=== PATIENT | male | born 1940 | race Caucasian/White ===

== ENCOUNTER 2018-12-27 11:53 | Inpatient (IN) ==
[2018-12-27] MEDS ORDERED: FUROSEMIDE 40 MG/4 ML VIAL IV STA (12:09)
--- NOTE | 2018-12-27 13:02 | XRay Report ---
XR chest 1V portable CLINICAL HISTORY: Dyspnea COMPARISON STUDY: Chest CT January 23, 2008 per chest radiograph July 20, 2018. FINDINGS: Patient is rotated. A small right pleural effusion is noted. There is mild right basilar op acity. Cardiomediastinal silhouette is unremarkable. Skinfolds project over the right hemithorax. IMPRESSION: 1. Small right pleural effusion with mild bibasilar opacities, greater on the right. The findings may reflect pneumonia or atelectasis. Radiographic follow up is recommended. 2. Pulmonary vascular congestion with possible mild pulmonary edema. Electronically signed by: Del Alonso M.D. 12/27/2018 1:01 PM
[2018-12-27 13:38] LABS: Basophils # (auto) 0.01 K/uL (0-0.2); Basophils % (auto) 0.1 %; Eosinophils # (auto) 0.02 K/uL (0-0.5); Eosinophils % (auto) 0.3 %; Hematocrit (blood only) 55.2 % (42-52); Hemoglobin 16.7 g/dL (14.0-18.0); Immature Granulocytes # (auto) 0.01 K/uL (0.00-0.02); Immature Granulocytes % (auto) 0.1 %; Lymphocytes # (auto) 1.18 K/uL (1.2-3.4); Mean Corpuscular Volume 94.4 fL (80-100); Mean Platelet Volume 10.5 fL (7.4-10.4); Monocytes % (auto) 9.5 %; Neutrophils # (auto) 5.46 K/uL (1.4-6.5); Platelet Count 130 K/uL (130-400); RDW Coefficient of Variation 15.9 % (11.5-14.5); Red Blood Count 5.85 M/uL (4.7-6.1); White Blood Count 7.38 K/uL (4.8-10.8)
[2018-12-27 13:40] LABS: Mean Corpuscular Hgb Conc 30.3 g/dL (32-36)
[2018-12-27 13:50] LABS: INR 1.3 (0.9-1.1); Partial Thromboplastin Time 26.6 Seconds (21.0-31.0); Prothrombin Time 12.7 Seconds (9.0-12.0)
[2018-12-27 13:52] LABS: Appearance Urine Clear (Clear); Bacteria Urine Automated Negative (Negative); Bilirubin Urine Negative (Negative); Blood Urine Trace (Negative); Cast Urine Automated 0 /lpf (0-5); Color Urine Yellow; Epithelial Cell Urine Auto 0-5 /lpf (0-5); Glucose Urine UA Negative (Negative); Ketones Urine Negative (Negative); Leukocyte Esterase Urine Negative (Negative); Nitrite Urine Negative (Negative); Protein Urine Trace (Negative); Specific Gravity Urine 1.013 (1.000-1.030); Urobilinogen Urine Negative (Negative); pH Urine 5.5 (4.5-7.5)
[2018-12-27 13:55] LABS: Alanine Aminotransferase 27 U/L (12-78); Aspartate Aminotransferase 57 U/L (15-37); BUN Creatinine Ratio 29.4 (10-20); Blood Urea Nitrogen 26 mg/dl (7-18); Calcium 8.9 mg/dl (8.5-10.1); Carbon Dioxide 36 mmol/L (21-32); Chloride 101 mmol/L (98-107); Est GFR (African American) 96.5; Est GFR (Non-African American) 83.2; Glucose 86 mg/dl (70-99); Magnesium 2.3 mg/dl (1.8-2.4); Potassium 4.3 mmol/L (3.5-5.1); Sodium 141 mmol/L (136-145)
[2018-12-27 13:59] LABS: Albumin Globulin Ratio 0.8 (0.9-2); Alkaline Phosphatase 84 U/L (45-117); Bilirubin,Total 1.5 mg/dl (0.2-1); Globulin 3.7 gm/dl (2.5-4.0); Total Protein 6.7 gm/dl (6.4-8.2); Troponin I 0.031 ng/ml (0-0.045)
--- NOTE | 2018-12-27 14:26 | Ultrasound Report ---
BILATERAL LOWER EXTREMITY VENOUS DOPPLER CLINICAL HISTORY: DVT, BLE swelling, L ecchymosis COMPARISON STUDY: No previous studies for comparison. TECHNIQUE: Sonography of the deep venous system of the bilateral lower extremities was performed. Co mpression and augmentation were evaluated. FINDINGS: The bilateral common femoral, superficial femoral and popliteal veins were compressible. A ugmentation was normal. Flow was shown within the deep calf vessels. Lower extremity edema is noted. IMPRESSION: No evidence of deep venous thrombus within the bilateral lower extremities. Electronically signed by: Del Alonso M.D. 12/27/2018 2:25 PM
[2018-12-27] MEDS ORDERED: cefTRIAXone SODIUM 1,000 MG/50 ML BAG IV STA (15:36)
--- NOTE | 2018-12-27 16:06 | History & Physical Report ---
Date of Service December 27, 2018 Assessment & Plan (1) Hypoxia: New onset, likely 2/2 acute decompensated heart falure. Cont oxygen supplementation. Cont Lasix 40mg IV in am, and continue with redosing based on response. He appears comfortable and not tachypneic on 4L via NC. (2) Acute CHF: Lasix, cont atenolol, obtain updated TTE. Consider compression hose for mechanical compression of LE edema bilaterally once he improves somewhat. Trend trops-denies CP. Sodium restricted diet, daily standing weights. (3) Frequent falls: PT/OT ordered, cont treating acute issues (4) Cellulitis of right upper extremity: Rocephin daily pending clinical improvement. Blood cultures ordered in setting of chills, however, patient not septic. (5) Tobacco abuse: Encouraged to quit. Nicoderm patch while admitted. (6) Severe protein-calorie malnutrition: CT chest/abdomen/pelvis. Outpatient record review showed colnoscopy in Apr 2013 which did not reveal polyps. A repeat in 5 years was recommended at that time. He was seen by [facility]. (7) Skin ulcer of right hip: wound care, optifoam. Daily dressing changes and as needed. (8) DVT prophylaxis: Lovenox Full Code per discussion with patient and son who is MPOA on admission Dispo-uncertain, may need temporary SNF Qian Stewart DO [facility] History of Present Illness Chief Complaint: leg swelling/dyspnea Primary Care Provider: Leonardo Soliz MD 78 yo M smoker with CAD and PAD presents with lower leg swelling, dyspnea at rest with acute hypoxia and malaise/fatigue. Pt is not able to give a history that is clear. Per son, who is at the bedside and lives with the patient, states that the patient was progressively weak beginning yesterday and fell out of bed 8 times overnight. Began noticing leg swelling for the past 4 days and progressive shortness of breath. Patient is not on home oxygen and walks independently without a walker at baseline. He recently had a fall at home where he caught the corner of the bedpost on his right knuckle and this has become swollen and red with the erythema extending distal almost to his elbow. The patient denies any fevers but is currently reporting chills. The patient is a daily smoker and reports heavy alcohol use in the past but quit in 2012. He otherwise indulges and junk food regularly and his food has a high salt content reportedly. Review of systems reveals a 40 pound weight loss in the last 2 months despite good p.o. intake. The patient otherwise denies any chest pain, neck stiffness, headache, eye irritation, abdominal issues, issues. The patient's son does report some noticeable urinary retention this morning at home which is new for the patient. Mr. Jack is laying supine propped up on his right side in bed with his eyes closed during the entire examination. He is rita ented but participates very little in the question and answer session of the examination. The patient is not on Lasix at home. He is had a good response (approximately 1 L ) to 40 mg IV given in the ER today and Simon catheter is in place. Rocephin was started for cellulitis of the hand in the ER. Allergies Allergy/AdvReac Type Severity Reaction Status Date / Time No Known Allergies Allergy Unknown Verified 01/21/08 20:17 Home Medications Home Medications Medication Instructions Recorded Confirmed Type aspirin [Aspirin Low Dose] 81 mg PO DAILY 12/27/18 12/27/18 History atenolol 25 mg PO DAILY 12/27/18 12/27/18 History carbidopa-levodopa 1 tab PO TID 12/27/18 12/27/18 History isosorbide mononitrate 60 mg PO BID 12/27/18 12/27/18 History pravastatin 40 mg PO DAILY 12/27/18 12/27/18 History Past Med/Surg History Medical History High blood pressure (Chronic) High cholesterol (Chronic) CAD S/P percutaneous coronary angioplasty received TIMMY to LAD in 2007 at [facility] Carotid arterial disease Excessive weight loss H/O ETOH abuse PAD (peripheral artery disease) s/p fem pop bypass in [place] Smoker Surgical History S/P femoral-popliteal bypass surgery Social History Preferred Language: Thai Communication Ability: Effective Maintenance Team Leader Required: No Beliefs That Will Affect Care: [employer] Beliefs: [employer] Current Living Situation: Family Current Living Situation Comment: with Pilar Feels Safe at Home: Yes Safety Concerns: Feels Safe At This Time Smoking Status: Current every day smoker Cigarettes Per Day: 10 Do You Dip or Chew Tobacco: No Hx Alcohol Use: Yes Hx Substance Use: No Review of Systems Review of Systems: At least ten systems were reviewed and negative except as indicated in the HPI above. Physical Exam Physical Exam: CONSTITUTIONAL: cachectic, vitals as above, generally ill apearing and fatigued, no respiratory distress on 4L NC. Nicotine stains on all fingers. EYES: PERRL, irritation of eyelids, no discharge, normal conjuctivae, injected sclerae ENT: MM dry NECK: trachea midline RESPIRATORY: very poor effort, some coarse rhonchi on the right, moves air well on left, no wheezing. No resp distress. CARDIOVASCULAR: regular rate and rhythm, S1 and 2 heard without murmurs, gallops or rubs, no JVD, 3+ pitting edema bilaterally CHEST: inspection of chest was cata GASTROINTESTINAL: normal bowel sounds, soft, nontender,nondistended MUSCULOSKELETAL: strength 5/5 throughout, head is normocephalic and atraumatic, neck supple, normal palpation of chest wall without tenderness SKIN: warm and dry, Stage II ulceration on R hand with surrounding erythema extending proximally up the forearm over half way to elbow. Stage II ulceration of R buttock. Draining wound on LLE without surrounding erythema or purulent drainage. 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 Appears to move all extremities equally and has generalized weakness. No gross focal deficits. PSYCHIATRIC: alert cooperative and oriented to person, place and time. Results & Data Vital Signs (Past 12 Hours) Vital Signs Temp Pulse Pulse Resp BP BP Pulse Ox 12/27/18 12:53 62 15 129/66 96 12/27/18 11:54 36.8 C 76 22 129/70 Laboratory Results Short CBC 12/27/18 Range/Units 12:35 WBC 7.38 (4.8-10.8) K/uL Hgb 16.7 (14.0-18.0) g/dL Hct 55.2 H (42-52) % Plt Count 130 (130-400) K/uL BMP 12/27/18 12:35 Sodium 141 Potassium 4.3 Chloride 101 Carbon Dioxide 36 H BUN 26 H Creatinine 0.87 Glucose 86 Calcium 8.9 Cardiac Enzymes 12/27/18 Range/Units 12:35 Troponin I 0.031 (0-0.045) ng/ml Liver Function 12/27/18 Range/Units 12:35 Total Bilirubin 1.5 H (0.2-1) mg/dl AST 57 H (15-37) U/L ALT 27 (12-78) U/L Alkaline Phosphatase 84 (45-117) U/L Albumin 3.0 L (3.4-5.0) gm/dl Urine 12/27/18 Range/Units 13:35 Urine Color Yellow Urine Appearance Clear (Clear) Urine pH 5.5 (4.5-7.5) Ur Specific [place] 1.013 (1.000-1.030) Urine Protein Trace H (Negative) Urine Glucose (UA) Negative (Negative) Diagnostic Findings CT OF THE HEAD WITHOUT CONTRAST CLINICAL HISTORY: frequent falls COMPARISON STUDY: No previous studies for comparison. CT DOSE: 614.27 mGy.cm TECHNIQUE: Helical axial images of the head were obtained without IV contrast. Automated exposure control was utilized for the study. A dose lowering technique was utilized adhering to the principles of ALARA. FINDINGS: No acute intracranial hemorrhage, midline shift or mass effect is present. Ventricular system is normal. The basilar cisterns are patent. There are no extra-axial collections. White matter hypodensities suggest moderate small vessel disease. There are no findings to suggest acute dural sinus thrombosis or acute territorial infarct. Right maxillary sinus mucous retention cyst is noted. There is mucosal thickening and secretions within the left maxillary sinus. Age indeterminate minimally displaced right nasal bone fracture is noted. IMPRESSION: 1. No acute intracranial findings. 2. Left maxillary sinusitis, possibly acute. 3. Age indeterminate minimally displaced right nasal bone fracture. No calvarial fracture. XR chest 1V portable CLINICAL HISTORY: Dyspnea COMPARISON STUDY: Chest CT January 23, 2008 per chest radiograph July 20, 2018. FINDINGS: Patient is rotated. A small right pleural effusion is noted. There is mild right basilar opacity. Cardiomediastinal silhouette is unremarkable. Skinfolds project over the right hemithorax. IMPRESSION: 1. Small right pleural effusion with mild bibasilar opacities, greater on the right. The findings may reflect pneumonia or atelectasis. Radiographic follow up is recommended. 2. Pulmonary vascular congestion with possible mild pulmonary edema BILATERAL LOWER EXTREMITY VENOUS DOPPLER CLINICAL HISTORY: DVT, BLE swelling, L ecchymosis COMPARISON STUDY: No previous studies for comparison. TECHNIQUE: Sonography of the deep venous system of the bilateral lower extremities was performed. Compression and augmentation were evaluated. FINDINGS: The bilateral common femoral, superficial femoral and popliteal veins were compressible. Augmentation was normal. Flow was shown within the deep calf vessels. Lower extremity edema is noted. IMPRESSION: No evidence of deep venous thrombus within the bilateral lower extremities. Medications Administered LAsix 40mg IV ECG Additional Comments: SR 66, +PVC Code Status & VTE Plan Code Status Full Code VTE Prophylaxis Plan VTE Prophylaxis will be ordered: Yes Critical Care Time Critical Care Time: No (1) Skin ulcer of right hip Non-pressure ulcer stage: unspecified non-pressure ulcer stage Qualified Code(s): L97.119 - 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
--- NOTE | 2018-12-27 17:17 | CT Scan Report ---
CT OF THE HEAD WITHOUT CONTRAST CLINICAL HISTORY: frequent falls COMPARISON STUDY: No previous studies for comparison. CT DOSE: 614.27 mGy.cm TECHNIQUE: Helical axial images of the head were obtained without IV contrast. Automated exposure con trol was utilized for the study. A dose lowering technique was utilized adhering to the principles o f ALARA. FINDINGS: No acute intracranial hemorrhage, midline shift or mass effect is present. Ventricular syst em is normal. The basilar cisterns are patent. There are no extra-axial collections. White matter hyp odensities suggest moderate small vessel disease. There are no findings to suggest acute dural sinus thrombosis or acute territorial infarct. Right maxillary sinus mucous retention cyst is noted. There is mucosal thickening and secretions within the left maxillary sinus. Age indeterminate minimally dis placed right nasal bone fracture is noted. IMPRESSION: 1. No acute intracranial findings. 2. Left maxillary sinusitis, possibly acute. 3. Age indeterminate minimally displaced right nasal bone fracture. No calvarial fracture. Electronically signed by: Del Alonso M.D. 12/27/2018 5:16 PM
--- NOTE | 2018-12-27 17:31 | CT Scan Report ---
CT OF THE CHEST WITHOUT IV CONTRAST CLINICAL HISTORY: 40 lb wt loss in 2 months, smoker COMPARISON STUDY: Chest CT January 23, 2008. Chest radiograph performed earlier today. TECHNIQUE: Axial images of the chest were obtained without IV contrast. Images were reviewed in the axial, sagittal, and coronal planes. IV contrast was not administered for this examination. Automat ed exposure control was utilized for the study. A dose lowering technique was utilized adhering to t he principles of ALARA. FINDINGS: No enlarged axillary, mediastinal or hilar lymph nodes are present. The size of the heart is normal. There is extensive coronary artery calcification. There is mild dilatation of the central pulmonary arteries. There is a trace right pleural effusion. There is bilateral lower lobe airspace o pacity, greater on the right. There is no pneumothorax. Moderate emphysema is present. There is biapi mariam scarring. Note is made of an irregular 1.4 cm right lower lobe nodule on image 216 at 386. There is also a 1.2 cm irregular left lower lobe nodule on image 271 with minimal adjacent airspace opacity . Lungs are suboptimally assessed given respiratory motion. No acute fracture within the thoracic spi ne or ribs is identified. IMPRESSION: 1. Irregular 1.4 cm right lower lobe nodule which is suspicious for malignancy. An infectious etiolog y could appear similar although is considered less likely. Pulmonary consultation and a follow-up [facility] CT in one month are recommended. 2. 1.2 cm subpleural left lower lobe nodular opacity which may reflect a neoplasm or minimal airspace disease. 3. Moderate emphysema. 4. Extensive coronary artery calcification. 5. Small right pleural effusion. Mild right middle lobe and right lower lobe airspace opacity which m ay reflect pneumonia or atelectasis. Electronically signed by: Del Alonso M.D. 12/27/2018 5:29 PM
--- NOTE | 2018-12-27 17:35 | CT Scan Report ---
CT OF THE ABDOMEN AND PELVIS WITHOUT CONTRAST CLINICAL HISTORY: 40 lb wt loss in 2 months, smoker COMPARISON STUDY: No previous studies for comparison. TECHNIQUE: Axial images of the abdomen and pelvis were obtained without IV contrast. Images were revi ewed in the axial, sagittal, and coronal planes. Automated exposure control was utilized for the floresita dy. A dose lowering technique was utilized adhering to the principles of ALARA. FINDINGS: Please note that the chest CT will be reported separately. Evaluation of the abdomen and pe lvis is difficult given lack of contrast and posterior fat. Unenhanced images of liver, spleen, adren al glands and pancreas are unremarkable. Water attenuation bilateral renal lesions are suboptimally a ssessed on this exam but favor cysts. Aortoiliac bypass graft is suboptimally assessed on this unenha nced exam. A large amount of stool within the colon and rectum is noted. There is no evidence for a b owel obstruction. No pneumatosis, free air or portal venous gas is present. No suspicious osseous les ions are noted. Simon balloon is present within the bladder. There is no hydronephrosis. No biliary o r pancreatic ductal dilatation is identified. IMPRESSION: 1. Difficult study to interpret given lack of contrast and paucity of intra-abdominal fat. 2. Large amount of stool within the colon and rectum. No bowel obstruction. 3. No pneumatosis, free air or portal venous gas. Electronically signed by: Del Alonso M.D. 12/27/2018 5:34 PM
[2018-12-27] MEDS ORDERED: ONDANSETRON INJ 2 MG/ML 2 ML VIAL IV PRN (18:27)
[2018-12-27] MEDS ORDERED: POLYETHYLENE (MIRALAX) 17 GM PACK PO PRN (18:27)
[2018-12-27] MEDS ORDERED: ACETAMINOPHEN 325 MG TAB PO PRN (18:27)
--- NOTE | 2018-12-27 18:32 | Emergency Department Note ---
Entered by Yennifer Funez acting as a scribe for Janie Quezada MD History of Present Illness General Chief complaint: Edema To Extremity Stated complaint: SWELLING IN LEGS Time Seen by Provider: 12/27/18 12:03 Source: patient and family History of Present Illness Onset (ago): day(s) (a few days) Location: lower extremity (bilateral) Quality: + other (BLE edema) Exacerbated By: + other (walking, standing up) Associated symptoms: + weakness and + other (Positive falls (8 times last night)) The patient is a 78 year old male who presents to the Emergency Room with complaints of bilateral lower extremity swelling beginning a few days [employer]. He is accompanied by his family who reports they noticed swelling to the patient's BLE a few days ago. They report his lower extremities have swelled in the past however, this is significantly worse than his prior episodes. They note the patient cannot walk, stand up, and he fell 8 times last night. His son states the patient is extremely weak. The patient states he does not normally wear oxygen at home. Home Medications Home Medications Medication Instructions Recorded Confirmed Type aspirin [Aspirin Low Dose] 81 mg PO DAILY 12/27/18 12/27/18 History atenolol 25 mg PO DAILY 12/27/18 12/27/18 History carbidopa-levodopa 1 tab PO TID 12/27/18 12/27/18 History isosorbide mononitrate 60 mg PO BID 12/27/18 12/27/18 History pravastatin 40 mg PO DAILY 12/27/18 12/27/18 History Allergies Allergy/AdvReac Type Severity Reaction Status Date / Time No Known Allergies Allergy Unknown Verified 01/21/08 20:17 Past Med/Surg History Medical History High blood pressure (Chronic) High cholesterol (Chronic) CAD S/P percutaneous coronary angioplasty received TIMMY to LAD in 2007 at [facility] Carotid arterial disease Excessive weight loss H/O ETOH abuse PAD (peripheral artery disease) s/p fem pop bypass in [place] Smoker Surgical History S/P femoral-popliteal bypass surgery Social History Preferred Language: Romanian Communication Ability: Effective 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 and A total of 10 systems reviewed and were otherwise negative Physical Exam Vital Signs Vital Signs - 24 hr 12/27/18 19:35 12/27/18 21:39 12/28/18 00:37 Temperature 37.2 C 36.5 C Temperature Source Axillary Oral Pulse Rate [Apical] 71 81 Pulse Rate [Left Brachial] Pulse Rate [Right Brachial] Pulse Rate [Right Finger] Pulse Rhythm [Apical] Regular Pulse Rhythm [Left Brachial] Pulse Rhythm [Right Brachial] Pulse Strength [Apical] Normal Pulse Strength [Left Brachial] Pulse Strength [Right Brachial] Respiratory Rate 20 16 Respiratory Effort / Characteristics Non-Labored Non-Labored Spontaneous Respiratory Depth Normal Normal Respiratory Pattern Regular Regular Blood Pressure [Left Arm] Blood Pressure [Right Arm] 136/67 100/50 L Blood Pressure Mean [Left Arm] Blood Pressure Mean [Right Arm] 90 66 Blood Pressure Position [Left Arm] Blood Pressure Position [Right Arm] Lying Lying Pulse Oximetry 94 92 Oxygen Delivery Method Nasal Cannula Nasal Cannula Nasal Cannula Oxygen Flow Rate 2 2 12/28/18 01:18 12/28/18 04:29 12/28/18 07:26 Temperature 37.3 C 37.0 C Temperature Source Oral Oral Pulse Rate [Apical] 68 Pulse Rate [Left Brachial] Pulse Rate [Right Brachial] Pulse Rate [Right Finger] 67 Pulse Rhythm [Apical] Regular Pulse Rhythm [Left Brachial] Pulse Rhythm [Right Brachial] Pulse Strength [Apical] Normal Pulse Strength [Left Brachial] Pulse Strength [Right Brachial] Respiratory Rate 14 20 Respiratory Effort / Characteristics Non-Labored Spontaneous Non-Labored Spontaneous Respiratory Depth Normal Normal Respiratory Pattern Regular Regular Blood Pressure [Left Arm] Blood Pressure [Right Arm] 107/57 L 105/53 L Blood Pressure Mean [Left Arm] Blood Pressure Mean [Right Arm] 73 70 Blood Pressure Position [Left Arm] Blood Pressure Position [Right Arm] Lying Lying Pulse Oximetry 98 97 Oxygen Delivery Method Nasal Cannula Nasal Cannula Nasal Cannula Oxygen Flow Rate 2 2 4.0 12/28/18 10:23 12/28/18 11:16 12/28/18 12:00 Temperature 36.5 C Temperature Source Oral Pulse Rate [Apical] Pulse Rate [Left Brachial] Pulse Rate [Right Brachial] Pulse Rate [Right Finger] 52 L Pulse Rhythm [Apical] Pulse Rhythm [Left Brachial] Pulse Rhythm [Right Brachial] Pulse Strength [Apical] Pulse Strength [Left Brachial] Pulse Strength [Right Brachial] Respiratory Rate 20 Respiratory Effort / Characteristics Non-Labored Spontaneous SOB on Exertion Respiratory Depth Normal Respiratory Pattern Regular Blood Pressure [Left Arm] Blood Pressure [Right Arm] 75/73 L 88/50 L Blood Pressure Mean [Left Arm] Blood Pressure Mean [Right Arm] 73 62 Blood Pressure Position [Left Arm] Blood Pressure Position [Right Arm] Sitting Sitting Pulse Oximetry 91 Oxygen Delivery Method Nasal Cannula Nasal Cannula Oxygen Flow Rate 2 4.0 12/28/18 15:41 12/28/18 15:43 Temperature 36.4 C L Temperature Source Oral Pulse Rate [Apical] Pulse Rate [Left Brachial] 58 L Pulse Rate [Right Brachial] 57 L Pulse Rate [Right Finger] Pulse Rhythm [Apical] Pulse Rhythm [Left Brachial] Regular Pulse Rhythm [Right Brachial] Regular Pulse Strength [Apical] Pulse Strength [Left Brachial] Normal Pulse Strength [Right Brachial] Normal Respiratory Rate 18 Respiratory Effort / Characteristics Non-Labored Respiratory Depth Normal Respiratory Pattern Regular Blood Pressure [Left Arm] 67/40 L Blood Pressure [Right Arm] 69/43 L Blood Pressure Mean [Left Arm] 49 Blood Pressure Mean [Right Arm] 51 Blood Pressure Position [Left Arm] Lying Blood Pressure Position [Right Arm] Lying Pulse Oximetry 95 Oxygen Delivery Method Nasal Cannula Oxygen Flow Rate 2 78% on 2 L nasal cannula on initial exam Vital signs reviewed. General: Chronically ill-appearing male, in no significant distress. HEENT: No scleral icterus, PERRLA, neck supple. Atraumatic. Ptosis of the left eye. Cardiovascular: Regular rate and rhythm, no extra sounds. Pulmonary: Clear to auscultation bilaterally, normal work of breathing. Abdomen: Soft, nontender, nondistended, positive bowel sounds. : Normal external genitals. Not circumcised. Incontinent of urine. Musculoskeletal: 3+ to 4+ pitting edema to the BLE with some abrasions over the left hernandez and ecchymosis of the left foot. Some serous drainage. Edema extends up to proximal hernandez. Quarter sized ulceration to the right hip Neurologic: Patient awake alert and oriented x 3 Skin: Warm, dry, no rash. Quarter sized ulceration to the right hip Course 1205: The patient was evaluated in room A11. A complete history and physical examination was performed. 1526: I discussed the patient's case with. Jane Sheth PA-C, [facility] Hospitalist. Dr. Stewart, [facility] will evaluate the patient for further management. Administered Medications Aspirin (Ecotrin Ectab) 81 mg PO DAILY [facility] Stop: 01/27/19 08:59 Last Admin: 12/28/18 08:32 Dose: 81 mg Documented by: [id number] Atenolol (Tenormin) 25 mg PO DAILY [facility] Stop: 01/27/19 08:59 Last Admin: 12/28/18 08:32 Dose: 25 mg Documented by: [id number] Carbidopa/Levodopa (Sinemet 25/100 Mg) 1 tab PO TID [facility] Stop: 01/26/19 20:59 Last Admin: 12/28/18 12:29 Dose: 1 tab Documented by: [id number] Admin: 12/28/18 08:32 Dose: 1 tab Documented by: [id number] Admin: 12/27/18 20:46 Dose: 1 tab Documented by: [id number] Enoxaparin Sodium (Lovenox) 40 mg SQ QAM [facility] Stop: 01/27/19 08:59 Last Admin: 12/28/18 08:32 Dose: 40 mg Documented by: [id number] Ceftriaxone Sodium 1,000 mg/ (Dextrose) 50 mls @ 100 mls/hr IV Q24H [facility]; Protocol Stop: 01/05/19 16:29 Last Infusion: 12/28/18 17:24 Dose: 0 mls/hr Documented by: [id number] Admin: 12/28/18 16:42 Dose: 100 mls/hr Documented by: [id number] Sodium Chloride (Nss 1000ml) 1,000 mls @ 125 mls/hr IV .Q8H [facility] Stop: 01/27/19 15:44 Last Admin: 12/28/18 16:41 Dose: 125 mls/hr Documented by: [id number] Isosorbide Mononitrate (Imdur Extended Rel) 60 mg PO BID [facility] Stop: 01/26/19 20:59 Last Admin: 12/28/18 08:32 Dose: 60 mg Documented by: [id number] Admin: 12/27/18 20:46 Dose: 60 mg Documented by: [id number] Midodrine (Proamatine) 2.5 mg PO TID@0800,1200,1700 [facility] Stop: 01/27/19 16:59 Last Admin: 12/28/18 16:46 Dose: 2.5 mg Documented by: [id number] Miscellaneous (Remove Nicoderm Patch) 1 ea N/A HS [facility] Stop: 01/26/19 22:59 Last Admin: 12/28/18 00:14 Dose: 1 ea Documented by: [id number] Nicotine (Nicoderm Cq) 21 mg TD QAM [facility] Stop: 01/26/19 18:44 Last Admin: 12/28/18 08:33 Dose: 21 mg Documented by: [id number] Admin: 12/27/18 19:18 Dose: 21 mg Documented by: [id number] Pravastatin Sodium (Pravachol) 40 mg PO DAILY [facility] Stop: 01/27/19 08:59 Last Admin: 12/28/18 08:32 Dose: 40 mg Documented by: [id number] Discontinued Medications Azithromycin (Zithromax) 500 mg PO NOW ONE Stop: 12/28/18 15:57 Last Admin: 12/28/18 16:45 Dose: 500 mg Documented by: [id number] Furosemide (Lasix) 40 mg IV NOW STA Stop: 12/27/18 12:10 Last Admin: 12/27/18 12:47 Dose: 40 mg Documented by: [id number] Ceftriaxone Sodium (Rocephin) 1,000 mg in 50 mls @ 100 mls/hr IV NOW STA Stop: 12/27/18 16:05 Last Infusion: 12/27/18 16:44 Dose: 0 mls/hr Documented by: [id number] Admin: 12/27/18 16:06 Dose: 100 mls/hr Documented by: [id number] Furosemide 40 mg/ Syringe 4 mls @ 4 mls/min IV TODAY@1845 ONE Stop: 12/27/18 18:46 Last Admin: 12/27/18 19:18 Dose: 4 mls/min Documented by: [id number] Azithromycin 500 mg/ Dextrose 255 mls @ 125 mls/hr IV DAILY@1999 [facility] Stop: 01/03/19 19:59 Last Infusion: 12/27/18 22:56 Dose: 0 mls/hr Documented by: [id number] Admin: 12/27/18 20:45 Dose: 125 mls/hr Documented by: [id number] Sodium Chloride (Nss 1000ml) 1,000 mls @ 80 mls/hr IV .[id number] [facility] Stop: 12/28/18 18:44 Last Admin: 12/28/18 12:30 Dose: 80 mls/hr Documented by: [id number] Miscellaneous (Patient's Height And/Or Weight Needed) 1 ea N/A Q2H [facility] Stop: 01/26/19 18:44 Last Admin: 12/27/18 19:27 Dose: 1 ea Documented by: [id number] Medical Decision Making Differential Diagnosis Differential diagnosis: Etiologies such as infections, reactive airway disease, pneumonia, pneumothorax, COPD, CHF, cardiac ischemia, pulmonary embolism, musculoskeletal, gastrointestinal, as well as others were entertained. Medical Records Attestation: I reviewed the patient's medical records. Home Medications Current Medication List: was personally reviewed by me Laboratory Data Attestation: I reviewed the patient's lab results. Result diagrams: 12/28/18 12:37 12/28/18 12:37 Lab Results 12/27/18 12/27/18 12/27/18 Range/Units 12:35 12:35 12:35 WBC 7.38 (4.8-10.8) K/uL RBC 5.85 (4.7-6.1) M/uL Hgb 16.7 (14.0-18.0) g/dL Hct 55.2 H (42-52) % MCV 94.4 (80-100) fL MCH 28.5 (25-34) pg MCHC 30.3 L (32-36) g/dL RDW Std Deviation 55.0 H (36.4-46.3) fL RDW Coeff of Krystle 15.9 H (11.5-14.5) % Plt Count 130 (130-400) K/uL MPV 10.5 H (7.4-10.4) fL Immature Gran % (Auto) 0.1 % Neut % (Auto) 74.0 % Lymph % (Auto) 16.0 % Coos % (Auto) 9.5 % Eos % (Auto) 0.3 % Baso % (Auto) 0.1 % Immature Gran # (Auto) 0.01 (0.00-0.02) K/uL Neut # (Auto) 5.46 (1.4-6.5) K/uL Lymph # (Auto) 1.18 L (1.2-3.4) K/uL Coos # (Auto) 0.70 H (0.11-0.59) K/uL Eos # (Auto) 0.02 (0-0.5) K/uL Baso # (Auto) 0.01 (0-0.2) K/uL PT 12.7 H (9.0-12.0) Seconds INR 1.3 H (0.9-1.1) APTT 26.6 (21.0-31.0) Seconds PTT Ratio 1.0 Sodium 141 (136-145) mmol/L Potassium 4.3 (3.5-5.1) mmol/L Chloride 101 (98-107) mmol/L Carbon Dioxide 36 H (21-32) mmol/L Anion Gap 4.0 (3-11) BUN 26 H (7-18) mg/dl Creatinine 0.87 (0.6-1.4) mg/dl Est Cr Clr Drug Dosing Not Reportable Est GFR ( Amer) 96.5 Est GFR (Non-Af Amer) 83.2 BUN/Creatinine Ratio 29.4 H (10-20) Glucose 86 (70-99) mg/dl Calcium 8.9 (8.5-10.1) mg/dl Magnesium 2.3 (1.8-2.4) mg/dl Total Bilirubin 1.5 H (0.2-1) mg/dl AST 57 H (15-37) U/L ALT 27 (12-78) U/L Alkaline Phosphatase 84 (45-117) U/L Troponin I 0.031 (0-0.045) ng/ml NT-Pro-B Natriuret Pep (0-1800) pg/ml Total Protein 6.7 (6.4-8.2) gm/dl Albumin 3.0 L (3.4-5.0) gm/dl Globulin 3.7 (2.5-4.0) gm/dl Albumin/Globulin Ratio 0.8 L (0.9-2) TSH (0.300-4.500) uIu/ml Urine Color Urine Appearance (Clear) Urine pH (4.5-7.5) Ur Specific [place] (1.000-1.030) Urine Protein (Negative) Urine Glucose (UA) (Negative) Urine Ketones (Negative) Urine Blood (Negative) Urine Nitrite (Negative) Urine Bilirubin (Negative) Urine Urobilinogen (Negative) Ur Leukocyte Esterase (Negative) Urine WBC (Auto) (0-5) /hpf Urine RBC (Auto) (0-4) /hpf U Hyaline Cast (Auto) (0-5) /lpf U Epithel Cells (Auto) (0-5) /lpf Urine Bacteria (Auto) (Negative) 12/27/18 12/27/18 12/28/18 Range/Units 13:35 19:32 12:37 WBC 8.65 (4.8-10.8) K/uL RBC 5.26 (4.7-6.1) M/uL Hgb 14.7 (14.0-18.0) g/dL Hct 49.9 (42-52) % MCV 94.9 (80-100) fL MCH 27.9 (25-34) pg MCHC 29.5 L (32-36) g/dL RDW Std Deviation 56.3 H (36.4-46.3) fL RDW Coeff of Krystle 16.1 H (11.5-14.5) % Plt Count 133 (130-400) K/uL MPV 10.0 (7.4-10.4) fL Immature Gran % (Auto) 0.1 % Neut % (Auto) 78.5 % Lymph % (Auto) 14.3 % Coos % (Auto) 6.5 % Eos % (Auto) 0.5 % Baso % (Auto) 0.1 % Immature Gran # (Auto) 0.01 (0.00-0.02) K/uL Neut # (Auto) 6.79 H (1.4-6.5) K/uL Lymph # (Auto) 1.24 (1.2-3.4) K/uL Coos # (Auto) 0.56 (0.11-0.59) K/uL Eos # (Auto) 0.04 (0-0.5) K/uL Baso # (Auto) 0.01 (0-0.2) K/uL PT (9.0-12.0) Seconds INR (0.9-1.1) APTT (21.0-31.0) Seconds PTT Ratio Sodium (136-145) mmol/L Potassium (3.5-5.1) mmol/L Chloride (98-107) mmol/L Carbon Dioxide (21-32) mmol/L Anion Gap (3-11) BUN (7-18) mg/dl Creatinine (0.6-1.4) mg/dl Est Cr Clr Drug Dosing Est GFR ( Amer) Est GFR (Non-Af Amer) BUN/Creatinine Ratio (10-20) Glucose (70-99) mg/dl Calcium (8.5-10.1) mg/dl Magnesium (1.8-2.4) mg/dl Total Bilirubin (0.2-1) mg/dl AST (15-37) U/L ALT (12-78) U/L Alkaline Phosphatase (45-117) U/L Troponin I 0.030 (0-0.045) ng/ml NT-Pro-B Natriuret Pep (0-1800) pg/ml Total Protein (6.4-8.2) gm/dl Albumin (3.4-5.0) gm/dl Globulin (2.5-4.0) gm/dl Albumin/Globulin Ratio (0.9-2) TSH (0.300-4.500) uIu/ml Urine Color Yellow Urine Appearance Clear (Clear) Urine pH 5.5 (4.5-7.5) Ur Specific [place] 1.013 (1.000-1.030) Urine Protein Trace H (Negative) Urine Glucose (UA) Negative (Negative) Urine Ketones Negative (Negative) Urine Blood Trace H (Negative) Urine Nitrite Negative (Negative) Urine Bilirubin Negative (Negative) Urine Urobilinogen Negative (Negative) Ur Leukocyte Esterase Negative (Negative) Urine WBC (Auto) 1-5 (0-5) /hpf Urine RBC (Auto) 5-10 H (0-4) /hpf U Hyaline Cast (Auto) 0 (0-5) /lpf U Epithel Cells (Auto) 0-5 (0-5) /lpf Urine Bacteria (Auto) Negative (Negative) 12/28/18 Range/Units 12:37 WBC (4.8-10.8) K/uL RBC (4.7-6.1) M/uL Hgb (14.0-18.0) g/dL Hct (42-52) % MCV (80-100) fL MCH (25-34) pg MCHC (32-36) g/dL RDW Std Deviation (36.4-46.3) fL RDW Coeff of Krystle (11.5-14.5) % Plt Count (130-400) K/uL MPV (7.4-10.4) fL Immature Gran % (Auto) % Neut % (Auto) % Lymph % (Auto) % Coos % (Auto) % Eos % (Auto) % Baso % (Auto) % Immature Gran # (Auto) (0.00-0.02) K/uL Neut # (Auto) (1.4-6.5) K/uL Lymph # (Auto) (1.2-3.4) K/uL Coos # (Auto) (0.11-0.59) K/uL Eos # (Auto) (0-0.5) K/uL Baso # (Auto) (0-0.2) K/uL PT (9.0-12.0) Seconds INR (0.9-1.1) APTT (21.0-31.0) Seconds PTT Ratio Sodium 140 (136-145) mmol/L Potassium 3.9 (3.5-5.1) mmol/L Chloride 99 (98-107) mmol/L Carbon Dioxide 42 H* (21-32) mmol/L Anion Gap 1.0 L (3-11) BUN 28 H (7-18) mg/dl Creatinine 0.97 (0.6-1.4) mg/dl Est Cr Clr Drug Dosing 57.4 Est GFR ( Amer) 86.9 Est GFR (Non-Af Amer) 75.0 BUN/Creatinine Ratio 28.7 H (10-20) Glucose 144 H (70-99) mg/dl Calcium 8.1 L (8.5-10.1) mg/dl Magnesium (1.8-2.4) mg/dl Total Bilirubin 1.1 H (0.2-1) mg/dl AST 49 H (15-37) U/L ALT 6 L (12-78) U/L Alkaline Phosphatase 67 (45-117) U/L Troponin I (0-0.045) ng/ml NT-Pro-B Natriuret Pep 2450 H (0-1800) pg/ml Total Protein 5.6 L (6.4-8.2) gm/dl Albumin 2.3 L (3.4-5.0) gm/dl Globulin 3.3 (2.5-4.0) gm/dl Albumin/Globulin Ratio 0.7 L (0.9-2) TSH 0.997 (0.300-4.500) uIu/ml Urine Color Urine Appearance (Clear) Urine pH (4.5-7.5) Ur Specific [place] (1.000-1.030) Urine Protein (Negative) Urine Glucose (UA) (Negative) Urine Ketones (Negative) Urine Blood (Negative) Urine Nitrite (Negative) Urine Bilirubin (Negative) Urine Urobilinogen (Negative) Ur Leukocyte Esterase (Negative) Urine WBC (Auto) (0-5) /hpf Urine RBC (Auto) (0-4) /hpf U Hyaline Cast (Auto) (0-5) /lpf U Epithel Cells (Auto) (0-5) /lpf Urine Bacteria (Auto) (Negative) Imaging Data Radiologist's Impression: Radiology results as stated below per my review and the radiologist's interpretation: XR chest 1V portable CLINICAL HISTORY: Dyspnea COMPARISON STUDY: Chest CT January 23, 2008 per chest radiograph July 20, 2018. FINDINGS: Patient is rotated. A small right pleural effusion is noted. There is mild right basilar opacity. Cardiomediastinal silhouette is unremarkable. Skinfolds project over the right hemithorax. IMPRESSION: 1. Small right pleural effusion with mild bibasilar opacities, greater on the right. The findings may reflect pneumonia or atelectasis. Radiographic follow up is recommended. 2. Pulmonary vascular congestion with possible mild pulmonary edema. Electronically signed by: Del Alonso M.D. 12/27/2018 1:01 PM BILATERAL LOWER EXTREMITY VENOUS DOPPLER CLINICAL HISTORY: DVT, BLE swelling, L ecchymosis COMPARISON STUDY: No previous studies for comparison. TECHNIQUE: Sonography of the deep venous system of the bilateral lower extremities was performed. Compression and augmentation were evaluated. FINDINGS: The bilateral common femoral, superficial femoral and popliteal veins were compressible. Augmentation was normal. Flow was shown within the deep calf vessels. Lower extremity edema is noted. IMPRESSION: No evidence of deep venous thrombus within the bilateral lower extremities. Electronically signed by: Del Alonso M.D. 12/27/2018 2:25 PM ECG Data Attestation: I personally reviewed and interpreted this ECG as follows: Indication: SOB/dyspnea Rate (beats per minute): 66 Rhythm: sinus rhythm Findings: + other (QTC 446) and + PVC; no acute ischemic change Blood Pressure Blood Pressure Findings: Normal blood pressure Blood Pressure Disposition: did not require urgent referral MDM Narrative This patient was evaluated and appeared to be in no significant distress. IV access was obtained and laboratory work was drawn. Patient was placed on the court recording monitor and found to be in a normal sinus rhythm. There is no evidence of acute ischemia. Patient's oxygen saturations were stable on nasal cannula oxygen at 4 to 6 L however he was hypoxic into the 70s on room air to 2 L of nasal cannula oxygen. Patient has bilateral lower extremity pitting edema. Chest x-ray is relatively clear. Laboratory work reveals a creatinine of 0.87. Patient was given 40 mg of IV Lasix. On my reevaluation, nursing staff pointed out a quarter sized ulceration to the right hip which appears to be pressure related. Patient's son noted an index finger wound that appears to have secondary infection. Nursing staff cleansed and dressed the wound that occurred multiple days ago and IV ceftriaxone was initiated. I did discuss the case with Jane Sheth PA-C who has agreed to evaluate the patient with Dr. Stewart of the hospitalist service. Patient and family are aware of the plan and agree. Impression & Plan CHF (congestive heart failure), Hypoxia, Cellulitis of right upper extremity, Frequent falls, Skin ulcer of right hip Discharge Plan Visit Data *Final* Discharge Date/Time: 12/27/18 17:32 Chief Complaint: Edema To Extremity Stated Complaint: SWELLING IN LEGS ED Provider: Janie Quezada Discharge Problem: CHF (congestive heart failure), Hypoxia, Cellulitis of right upper extremity, Frequent falls, Skin ulcer of right hip Patient Disposition: Admitted As Inpatient Discharge Instructions Interventions: ED Discharge Assessment Last Done: 12/27/18 17:32 Discharge Problem: CHF (congestive heart failure) Qualifiers: Heart failure type: unspecified Heart failure chronicity: unspecified Qualified Code(s): I50.9 - Heart failure, unspecified Skin ulcer of right hip Qualifiers: Non-pressure ulcer stage: unspecified non-pressure ulcer stage Qualified Code(s): L97.119 - 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 The scribe's documentation has been prepared under my direction and personally reviewed by me in its entirety. I confirm that the note above accurately reflects all work, treatment, procedures, and medical decision making performed by me.
[2018-12-27] MEDS ORDERED: PATIENT'S HEIGHT AND/OR WEIGHT NEEDED SCH (18:45)
[2018-12-27] MEDS ORDERED: FUROSEMIDE 40 MG in SYRINGE 0 ML IV ONE (18:45)
[2018-12-27] MEDS: NICOTINE 21 MG/24 HR TDSY TD SCH (19:18)
[2018-12-27] MEDS ORDERED: AZITHROMYCIN 500 MG in DEXTROSE 5% 250 ML IV SCH (20:00)
[2018-12-27] MEDS: CARBIDOPA/LEVODOPA 25/100MG TAB PO SCH (20:46)
[2018-12-27] MEDS: ISOSORBIDE MONO EXTENDED REL 60 MG TABCR PO SCH (20:46)
[2018-12-28] MEDS ORDERED: FUROSEMIDE 40 MG/4 ML VIAL IV ONE (06:00)
[2018-12-28] MEDS: ATENOLOL 25 MG TABLET PO SCH (08:32)
[2018-12-28] MEDS: CARBIDOPA/LEVODOPA 25/100MG TAB PO SCH ×3 (08:32→21:20)
[2018-12-28] MEDS: ISOSORBIDE MONO EXTENDED REL 60 MG TABCR PO SCH (08:32)
[2018-12-28] MEDS: PRAVASTATIN SOD 40 MG TAB PO SCH (08:32)
[2018-12-28] MEDS: ENOXAPARIN INJ 40 MG/0.4 ML SYR SQ SCH (08:32)
[2018-12-28] MEDS: ASPIRIN 81 MG ECTAB PO SCH (08:32)
[2018-12-28] MEDS: NICOTINE 21 MG/24 HR TDSY TD SCH (08:33)
[2018-12-28] MEDS ORDERED: SODIUM CHLORIDE 0.9% 1000ML 1,000 ML IV SCH (12:30)
[2018-12-28 12:47] LABS: Basophils # (auto) 0.01 K/uL (0-0.2); Basophils % (auto) 0.1 %; Eosinophils # (auto) 0.04 K/uL (0-0.5); Eosinophils % (auto) 0.5 %; Hematocrit (blood only) 49.9 % (42-52); Hemoglobin 14.7 g/dL (14.0-18.0); Immature Granulocytes # (auto) 0.01 K/uL (0.00-0.02); Immature Granulocytes % (auto) 0.1 %; Lymphocytes # (auto) 1.24 K/uL (1.2-3.4); Lymphocytes % (auto) 14.3 %; Mean Corpuscular Volume 94.9 fL (80-100); Monocytes # (auto) 0.56 K/uL (0.11-0.59); Monocytes % (auto) 6.5 %; Neutrophils # (auto) 6.79 K/uL (1.4-6.5); Neutrophils % (auto) 78.5 %; Platelet Count 133 K/uL (130-400); RDW Coefficient of Variation 16.1 % (11.5-14.5); RDW Standard Deviation 56.3 fL (36.4-46.3); Red Blood Count 5.26 M/uL (4.7-6.1); White Blood Count 8.65 K/uL (4.8-10.8)
[2018-12-28 12:56] LABS: Mean Corpuscular Hgb Conc 29.5 g/dL (32-36)
[2018-12-28 13:07] LABS: Albumin Level 2.3 gm/dl (3.4-5.0); BUN Creatinine Ratio 28.7 (10-20); Calcium 8.1 mg/dl (8.5-10.1); Creatinine Clr Calc Pharmacy 57.4 ml/min; Est GFR (African American) 86.9; Potassium 3.9 mmol/L (3.5-5.1)
[2018-12-28 13:22] LABS: Albumin Globulin Ratio 0.7 (0.9-2); Bilirubin,Total 1.1 mg/dl (0.2-1); Globulin 3.3 gm/dl (2.5-4.0); Total Protein 5.6 gm/dl (6.4-8.2)
[2018-12-28] MEDS ORDERED: Nursing to Pharmacy Communication ONE (14:12)
--- NOTE | 2018-12-28 15:43 | Hospitalist Progress Note ---
Date of Service December 28, 2018 Assessment & Plan (1) Hypoxia: Hypoxia may be from multifactorial reasons -patient is smoker and with emphysema: will start symbicort and advair -possible pneumonia: has been on ceftriaxone and azithromycin, continue -there may be possible acute diastolic heart failure but on admission, the lungs are without pulmonary edema as per CT chest 12/27/18 CT Chest 12/27/18 IMPRESSION: 1. Irregular 1.4 cm right lower lobe nodule which is suspicious for malignancy. An infectious etiology could appear similar although is considered less likely. Pulmonary consultation and a follow-up chest CT in one month are recommended. 2. 1.2 cm subpleural left lower lobe nodular opacity which may reflect a neoplasm or minimal airspace disease. 3. Moderate emphysema. 4. Extensive coronary artery calcification. 5. Small right pleural effusion. Mild right middle lobe and right lower lobe airspace opacity which may reflect pneumonia or atelectasis. -continue supplementary oxygen and titrate down as needed, keep oxygen saturation to 92% in case of COPD Pulmonary nodules -Irregular 1.4 cm right lower lobe nodule,1.2 cm subpleural left lower lobe nodular opacity -will need follow up Chest CT as per guidelines, outpatient PET scan, and pulmonary clinic follow up (2) Acute CHF: bilateral lower extremity swelling may be from acute diastolic heart failure echocardiogram on this admission has been ordered Patient received Lasix on 12/27/18 however, blood pressure very low on 12/28/18 and now on IV fluids to maintain blood pressure, also started midrodrine will hold off Lasix on 12/28/18 unless there are respiratory indications Hypotension -may be from diuretics -Hold Lasix on 12/28/18 ; give IV fluids and give midrodrine -hold atenolol and isosorbide mononitrate for now (3) Frequent falls: PT/OT evaluations (4) Cellulitis of right upper extremity: Rocephin daily was started on this admissionm continue follow up Blood cultures (5) Tobacco abuse: Encouraged to quit. Nicoderm patch while admitted. (6) Severe protein-calorie malnutrition: Cachexia foundation coordinator consult BOOST TID with meals (7) Skin ulcer of right hip: wound care, optifoam. Daily dressing changes and as needed. (8) DVT prophylaxis: Lovenox Code Status; allows fr chest compressions and defibrillations but no intubation and no mechanical ventilation Subjective Patient's blood pressure not to be low but he is not symptomatic in terms of his mental status. was seen with his son at bedside. Discussed the difficulties with patient and his family member about trying to diuresis to help with the leg swelling at this time with low blood pressure. Patient denies chest pain. He remains on nasal cannula 4 liters/min. no wheezing on lung exam. We discussed the pulmonary nodules and that in the context of patient's history of current smoking that he is at risk for lung cancer. Physical Exam Constitutional: + cachectic Eyes: EOM intact bilaterally ENMT: external ear and nose normal, oropharynx normal Respiratory: normal respiratory effort Auscultation: lungs clear to auscultation bilaterally Cardiovascular: Rate/Rhythm: + bradycardic Gastrointestinal (Abdomen): normal bowel sounds, soft, nontender, no hepatosplenomegaly Musculoskeletal: Head/Neck/Chest: normocephalic and head atraumatic Extremities: + lower leg abnormality (bilateral lower extremity edema) Neurologic: moves all extremities Psychiatric: Orientation: alert and cooperative Results & Data Vital Signs (Past 12 Hours) Vital Signs Temp Pulse Pulse Resp BP Pulse Ox 12/28/18 12:00 88/50 L 12/28/18 11:16 36.5 C 52 L 20 75/73 L 91 12/28/18 07:26 37.0 C 67 20 105/53 L 97 12/28/18 04:29 37.3 C 68 14 107/57 L 98 (1) Skin ulcer of right hip Non-pressure ulcer stage: unspecified non-pressure ulcer stage Qualified Code(s): L97.119 - 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
[2018-12-28] MEDS ORDERED: AZITHROMYCIN 250 MG TAB PO ONE (15:56)
[2018-12-28] MEDS: TIOTROPIUM BROMIDE 5 PUFF/90 MCG INH INH SCH (16:30)
[2018-12-28] MEDS: SODIUM CHLORIDE 0.9% 1000ML 1,000 ML IV SCH (16:41)
[2018-12-28] MEDS: cefTRIAXone SODIUM 1,000 MG in DEXTROSE 5% 50 ML IV SCH (16:42)
[2018-12-28] MEDS: MIDODRINE HCL 2.5 MG TAB PO SCH (16:46)
[2018-12-28] MEDS: FLUTICASONE/SALMETEROL 100/50 (ADVAIR) 14 PUFF/1 INHALER INH SCH (21:19)
[2018-12-29] MEDS: SODIUM CHLORIDE 0.9% 1000ML 1,000 ML IV SCH (00:20)
[2018-12-29 06:01] LABS: Basophils # (auto) 0.02 K/uL (0-0.2); Basophils % (auto) 0.3 %; Eosinophils % (auto) 1.3 %; Hematocrit (blood only) 48.1 % (42-52); Hemoglobin 14.5 g/dL (14.0-18.0); Immature Granulocytes # (auto) 0.02 K/uL (0.00-0.02); Immature Granulocytes % (auto) 0.3 %; Lymphocytes % (auto) 17.5 %; Mean Corpuscular Hgb Conc 30.1 g/dL (32-36); Mean Corpuscular Volume 94.7 fL (80-100); Mean Platelet Volume 9.7 fL (7.4-10.4); Monocytes # (auto) 0.75 K/uL (0.11-0.59); Monocytes % (auto) 9.4 %; Neutrophils % (auto) 71.2 %; Platelet Count 137 K/uL (130-400); RDW Standard Deviation 55.6 fL (36.4-46.3); Red Blood Count 5.08 M/uL (4.7-6.1); White Blood Count 7.99 K/uL (4.8-10.8)
[2018-12-29 06:46] LABS: Albumin Level 2.2 gm/dl (3.4-5.0); BUN Creatinine Ratio 41.8 (10-20); Calcium 7.7 mg/dl (8.5-10.1); Creatinine Clr Calc Pharmacy 77.3 ml/min; Est GFR (African American) 104.3; Magnesium 2.1 mg/dl (1.8-2.4); Potassium 4.2 mmol/L (3.5-5.1)
[2018-12-29 06:48] LABS: Albumin Globulin Ratio 0.6 (0.9-2); Bilirubin,Total 0.7 mg/dl (0.2-1); Globulin 3.5 gm/dl (2.5-4.0); Total Protein 5.7 gm/dl (6.4-8.2)
[2018-12-29] MEDS: CARBIDOPA/LEVODOPA 25/100MG TAB PO SCH ×3 (08:51→20:25)
[2018-12-29] MEDS: MIDODRINE HCL 2.5 MG TAB PO SCH ×3 (08:52→16:38)
[2018-12-29] MEDS: AZITHROMYCIN 250 MG TAB PO SCH (08:52)
[2018-12-29] MEDS: ASPIRIN 81 MG ECTAB PO SCH (08:56)
[2018-12-29] MEDS: PRAVASTATIN SOD 40 MG TAB PO SCH (08:56)
[2018-12-29] MEDS: FLUTICASONE/SALMETEROL 100/50 (ADVAIR) 14 PUFF/1 INHALER INH SCH ×2 (08:57→20:24)
[2018-12-29] MEDS: ENOXAPARIN INJ 40 MG/0.4 ML SYR SQ SCH (08:57)
[2018-12-29] MEDS: TIOTROPIUM BROMIDE 5 PUFF/90 MCG INH INH SCH (08:57)
[2018-12-29] MEDS: NICOTINE 21 MG/24 HR TDSY TD SCH (08:57)
[2018-12-29] MEDS ORDERED: ALBUMIN 25% 50 ML with FUROSEMIDE 40 MG IV ONE (11:40)
--- NOTE | 2018-12-29 11:48 | Hospitalist Progress Note ---
Date of Service December 29, 2018 Assessment & Plan (1) Hypoxia: Hypoxia may be from multifactorial reasons -patient is smoker and with emphysema: started symbicort and advair on this admission -possible pneumonia: has been on ceftriaxone and azithromycin, continue -there may be possible acute diastolic heart failure but on admission, the lungs are without pulmonary edema as per CT chest 12/27/18 CT Chest 12/27/18 IMPRESSION: 1. Irregular 1.4 cm right lower lobe nodule which is suspicious for malignancy. An infectious etiology could appear similar although is considered less likely. Pulmonary consultation and a follow-up chest CT in one month are recommended. 2. 1.2 cm subpleural left lower lobe nodular opacity which may reflect a neoplasm or minimal airspace disease. 3. Moderate emphysema. 4. Extensive coronary artery calcification. 5. Small right pleural effusion. Mild right middle lobe and right lower lobe airspace opacity which may reflect pneumonia or atelectasis. -continue supplementary oxygen and titrate down as needed, keep oxygen saturation to 92% in case of COPD Pulmonary nodules -Irregular 1.4 cm right lower lobe nodule,1.2 cm subpleural left lower lobe nodular opacity -will need follow up Chest CT as per guidelines, outpatient PET scan, and pulmonary clinic follow up (2) Acute CHF: bilateral lower extremity swelling may be from acute diastolic heart failure echocardiogram on this admission has been ordered Patient received Lasix on 12/27/18 however, blood pressure very low on 12/28/18 and now on IV fluids to maintain blood pressure, also started midrodrine Lasix was held on 12/28/18 12/29/18 will give Lasix IV 40 mg x 1 with albumin, will remove lopez and monitor output without a lopez Hypotension -may be from diuretics -Hold Lasix on 12/28/18 ; and given IV fluids with midrodrine; hold atenolol and isosorbide mononitrate for now -blood pressure have improved after IV fluids by AM of 12/29/18, will give Lasix IV 40 mg x 1 with albumin and continue the midrodrine and monitor the blood pressure, hold blood pressure medictaions (3) Frequent falls: continue PT/OT evaluations (4) Cellulitis of right upper extremity: Rocephin daily was started on this admission Blood cultures are negative cellulitis appears resolved at this time but will continue ceftriaxone for respiratory coverage (5) Tobacco abuse: Encouraged to quit. Nicoderm patch while admitted. (6) Severe protein-calorie malnutrition: Cachexia resp therapist consult BOOST TID with meals (7) Skin ulcer of right hip: wound care, optifoam. Daily dressing changes and as needed. (8) DVT prophylaxis: Lovenox Code Status; allows for chest compressions and defibrillations but no intubation and no mechanical ventilation Subjective Patient continues to have bilateral pedal edema although the calves are not tense. Patient continue require supplementary oxygen 4 liters/min at rest. patient's blood pressure stable and IV fluids discontinued. patient denies pain. patient has no other complaints. he is sitting up in the chair and watching televison Physical Exam Constitutional: + cachectic Eyes: EOM intact bilaterally ENMT: external ear and nose normal, oropharynx normal Neck: normal visual inspection Respiratory: normal respiratory effort Auscultation: lungs clear to auscultation bilaterally Cardiovascular: Rate/Rhythm: + bradycardic Gastrointestinal (Abdomen): normal bowel sounds, soft, nontender, no hepatosplenomegaly Musculoskeletal: Head/Neck/Chest: normocephalic and head atraumatic Extremities: + lower leg abnormality (bilateral lower extremity edema) Neurologic: moves all extremities Psychiatric: Orientation: alert and cooperative Genitourinary: has lopez Results & Data Vital Signs (Past 12 Hours) Vital Signs Temp Pulse Pulse Resp BP BP Pulse Ox 12/29/18 11:21 36.9 C 76 18 107/64 92 12/29/18 10:44 12/29/18 07:30 36.8 C 76 18 127/66 95 12/29/18 04:00 36.6 C 67 18 122/64 96 12/29/18 00:22 36.8 C 67 18 83/54 L 94 Pulse Ox Pulse Ox 12/29/18 11:21 12/29/18 10:44 90 86 L 12/29/18 07:30 12/29/18 04:00 12/29/18 00:22 (1) Skin ulcer of right hip Non-pressure ulcer stage: unspecified non-pressure ulcer stage Qualified Co de(s): L97.119 - 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
[2018-12-29] MEDS: cefTRIAXone SODIUM 1,000 MG in DEXTROSE 5% 50 ML IV SCH (16:12)
[2018-12-30 06:14] LABS: Basophils # (auto) 0.02 K/uL (0-0.2); Basophils % (auto) 0.3 %; Eosinophils % (auto) 1.3 %; Hematocrit (blood only) 50.9 % (42-52); Hemoglobin 15.3 g/dL (14.0-18.0); Immature Granulocytes # (auto) 0.02 K/uL (0.00-0.02); Immature Granulocytes % (auto) 0.3 %; Lymphocytes # (auto) 1.15 K/uL (1.2-3.4); Lymphocytes % (auto) 15.2 %; Mean Corpuscular Hgb Conc 30.1 g/dL (32-36); Mean Corpuscular Volume 95.1 fL (80-100); Mean Platelet Volume 10.3 fL (7.4-10.4); Monocytes # (auto) 0.82 K/uL (0.11-0.59); Monocytes % (auto) 10.8 %; Neutrophils # (auto) 5.48 K/uL (1.4-6.5); Neutrophils % (auto) 72.1 %; Platelet Count 135 K/uL (130-400); RDW Standard Deviation 55.8 fL (36.4-46.3); Red Blood Count 5.35 M/uL (4.7-6.1); White Blood Count 7.59 K/uL (4.8-10.8)
[2018-12-30 06:23] LABS: Base Excess VBG 13.7 mEq/L; HCO3 VBG 45 mmol/L; PCO2 VBG 91 mmHg (38-50); PO2 VBG 29 mmHg; pH VBG 7.32 (7.36-7.41)
[2018-12-30 06:24] LABS: Oxygen Saturation VBG < 60.0 %
[2018-12-30 06:49] LABS: Albumin Globulin Ratio 0.7 (0.9-2); Albumin Level 2.3 gm/dl (3.4-5.0); BUN Creatinine Ratio 35.8 (10-20); Bilirubin,Total 0.7 mg/dl (0.2-1); Calcium 8.4 mg/dl (8.5-10.1); Creatinine Clr Calc Pharmacy 83.4 ml/min; Est GFR (African American) 106.8; Est GFR (Non-African American) 92.1; Globulin 3.4 gm/dl (2.5-4.0); Potassium 4.5 mmol/L (3.5-5.1); Total Protein 5.7 gm/dl (6.4-8.2)
[2018-12-30] MEDS: NICOTINE 21 MG/24 HR TDSY TD SCH (08:19)
[2018-12-30] MEDS: CARBIDOPA/LEVODOPA 25/100MG TAB PO SCH ×3 (08:19→20:54)
[2018-12-30] MEDS: ASPIRIN 81 MG ECTAB PO SCH (08:19)
[2018-12-30] MEDS: PRAVASTATIN SOD 40 MG TAB PO SCH (08:19)
[2018-12-30] MEDS: ENOXAPARIN INJ 40 MG/0.4 ML SYR SQ SCH (08:20)
[2018-12-30] MEDS: TIOTROPIUM BROMIDE 5 PUFF/90 MCG INH INH SCH (08:20)
[2018-12-30] MEDS: FLUTICASONE/SALMETEROL 100/50 (ADVAIR) 14 PUFF/1 INHALER INH SCH (08:20)
[2018-12-30] MEDS: AZITHROMYCIN 250 MG TAB PO SCH (08:20)
[2018-12-30 08:23] LABS: Allen Test Pos (Pos); HCO3 ABG 42 mmol/L (19-24); Oxygen Saturation ABG 92.8 % (90-95); PCO2 ABG 79 mmHg (35-46); PO2 ABG 66 mm/Hg (80-95); pH ABG 7.35 (7.35-7.45)
[2018-12-30] MEDS ORDERED: FUROSEMIDE 40 MG TAB PO ONE (08:57)
--- NOTE | 2018-12-30 09:01 | Hospitalist Progress Note ---
Date of Service December 30, 2018 Assessment & Plan (1) Hypoxia: Hypoxia may be from multifactorial reasons -patient is smoker and with emphysema: started symbicort and advair on this admission, target oxygen saturation to 92 %, patient appears to be a CO2 retainer based on blood gases and will start BIPAP as needed -it is possible that patient's hypoxia and hypercarbia is chronic but was previously undiagnosed -possible pneumonia: has been on ceftriaxone and azithromycin since 12/27/18, continue -there may be possible acute diastolic heart failure but on admission, the lungs are without pulmonary edema as per CT chest 12/27/18 CT Chest 12/27/18 IMPRESSION: 1. Irregular 1.4 cm right lower lobe nodule which is suspicious for malignancy. An infectious etiology could appear similar although is considered less likely. Pulmonary consultation and a follow-up chest CT in one month are recommended. 2. 1.2 cm subpleural left lower lobe nodular opacity which may reflect a neoplasm or minimal airspace disease. 3. Moderate emphysema. 4. Extensive coronary artery calcification. 5. Small right pleural effusion. Mild right middle lobe and right lower lobe airspace opacity which may reflect pneumonia or atelectasis. Pulmonary nodules -Irregular 1.4 cm right lower lobe nodule,1.2 cm subpleural left lower lobe nodular opacity -will need follow up Chest CT as per guidelines, outpatient PET scan, and pulmonary clinic follow up (2) Acute CHF: bilateral lower extremity swelling may be from acute diastolic heart failure BNP on 12/28/18 as 2450; echocardiogram results on 12/29/18 with normal ejection fraction of 55 to 60% patient initially given IV Lasix for the edema on this admission but then had substantial hypotension on 12/28/18 but patient was asymptomatic on 12/28/18 , patient was started on midrodrine as he had already received his home dose of atenolol and isosorbide mononitrate on 12/29/18, patient was given IV Lasix 40 mg with albumin and did not drop his blood pressures substantially on 12/30/18, patient to be given oral Lasix 40 mg and then plan on 20 mg daily Lasix as patient remains having a lot of pedal edema particularly of the left foot. Hypotension hypotension on 12/28/18 likely from excessive diuretic medications with blood pressure medications blood pressure has improved since on oral lasix currently will resume home dose isosorbide will continue to hold home dose atenolol for now (3) Frequent falls: PT/OT evaluations have recommended assisted facility level of care for further physical therapy when patient is ready for discharge from the hospital (4) Cellulitis of right upper extremity: Ceftriaxone daily was started on this admission on 12/27/18 Blood cultures are negative cellulitis appears resolved at this time but will continue ceftriaxone for respiratory coverage (5) Tobacco abuse: Encouraged to quit Nicoderm patch while admitted. (6) Severe protein-calorie malnutrition: Cachexia Hypoalbuminemia : Hypoalbuminemia may also be contribuatory to the leg swelling give BOOST TID with meals (7) Skin ulcer of right hip: wound care, optifoam. Daily dressing changes and as needed. (8) DVT prophylaxis: Lovenox Code Status; allows for chest compressions and defibrillations but no intubation and no mechanical ventilation son [phone] Subjective Patient awake and verbal. He could not sit up for the posterior lung exam. denies chest pain. denies palpitations. denies lightheadedness. denies headache Physical Exam Constitutional: + cachectic Eyes: EOM intact bilaterally ENMT: external ear and nose normal, oropharynx normal Neck: normal visual inspection Respiratory: normal respiratory effort Auscultation: lungs clear to auscultation bilaterally Cardiovascular: Rate/Rhythm: + bradycardic Gastrointestinal (Abdomen): normal bowel sounds, soft, nontender, no hepatosplenomegaly Musculoskeletal: Head/Neck/Chest: normocephalic and head atraumatic Extremities: + lower leg abnormality (bilateral pedal edema that is worse on left leg) Neurologic: moves all extremities Psychiatric: Orientation: alert and cooperative Results & Data Vital Signs (Past 12 Hours) Vital Signs Temp Pulse Pulse Pulse Resp BP Pulse Ox 12/30/18 07:22 37.0 C 69 17 149/65 H 92 12/30/18 04:46 36.5 C 84 20 148/86 H 95 12/30/18 00:16 71 12/29/18 23:42 37.1 C 78 18 128/66 94 (1) Skin ulcer of right hip Non-pressure ulcer stage: unspecified non-pressure ulcer stage Qualified Code(s): L97.119 - 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
[2018-12-30] MEDS: cefTRIAXone SODIUM 1,000 MG in DEXTROSE 5% 50 ML IV SCH (15:55)
[2018-12-30] MEDS ORDERED: TAMSULOSIN HCL 0.4 MG CAP PO ONE (16:39)
[2018-12-30] MEDS ORDERED: POLYETHYLENE (MIRALAX) 17 GM PACK PO PRN (16:42)
[2018-12-30] MEDS: ALBUT/IPRATROP 3MG/0.5MG NEB 3 ML VIAL NEB SCH (20:14)
[2018-12-30] MEDS: SENNA 8.6 MG TAB PO SCH (20:36)
[2018-12-30] MEDS: FLUTICASONE/SALMETEROL (ADVAIR) 500/50 INH 14 PUFF INH SCH (20:53)
[2018-12-30] MEDS: ISOSORBIDE MONO EXTENDED REL 60 MG TABCR PO SCH (20:53)
--- NOTE | 2018-12-30 23:41 | Consultation Report ---
DATE OF CONSULTATION: 12/30/2018 DATE OF CONSULT: 12/30/2018 TIME: 4:40 p.m. REPORT OF CONSULTATION: The patient was seen in room 232. He is a 78-year-old male who was admitted to the hospital after presenting to the Emergency Room on 12/27/2018. The complaints at that time were severe weakness with recurring falls and peripheral edema. The patient himself is not the best historian. It was not clear how long he has had his symptoms. He states he has lost 40 pounds or more in the past 2 months. He is typically eating just one meal per day. He denies any nausea, vomiting or diarrhea. He does have constipation. He is not having chest pains. The patient is short of breath with any exertion. I suspect he has not been able to exert himself much recently. He admits going from one room to another. He would be quite winded. He denies a cough or wheezing. Denies chest pains, chills, fevers or sweats. He has had malaise and fatigue. As noted, the patient is not the best historian. PAST SURGICAL HISTORY: 1. Vascular surgery believed to be fem-pop bypass. 2. Cardiac stent. PAST MEDICAL HISTORY: 1. Hypertension. 2. Hypercholesterolemia. 3. Coronary artery disease. 4. MO. 5. Carotid artery disease. 6. Reported history of ETOH abuse. ALLERGIES: No known allergies. SOCIAL HISTORY: Tobacco: The patient started smoking at age 19 and still has been smoking. Most recently, he does one half pack per day. Most of his life, he states he smoked 2 packs per day. This would suggest a greater than [id number] history of smoking. Alcohol use is described as none for about 20 years. He was vague as to whether he used to drink heavily or not. FAMILY HISTORY: Mother in her 80s and he did not know the cause of her . Father in his 40s from pancreatic cancer. OCCUPATIONAL HISTORY: The patient was in the [employer] for 10 years. He did spend time in [place], but denies exposure to Agent [place]. 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 MEDICATIONS AT HOME: 1. Aspirin 81 mg daily. 2. Atenolol 25 mg daily. 3. Carbidopa/levodopa t.i.d. 4. Isosorbide mononitrate 60 mg b.i.d. 5. Pravastatin 40 mg daily. REVIEW OF SYSTEMS: Negative, except as noted in the history of present illness. Ten systems reviewed. PHYSICAL EXAMINATION: GENERAL: The patient is a 78-year-old male who was cooperative, alert and oriented. He was in no appearance of distress. Weight is 64.8 kilograms with a BMI of 18.8. HEENT: Pupils were reactive. Nares clear. Mouth exam showed dentures. Mild erythema noted in the posterior pharynx. No lymph nodes palpable. CHEST: Cardiac rate 86 per minute. Occasional extrasystole heard. Blood pressure 132/69. LUNGS: Lung escoto revealed diffusely diminished breath sounds with wheezes heard on forced expiration. Respiratory rate 16. Saturation most recently 95% while wearing a BiPAP. Temperature today 37. He has not had any fevers during this hospital stay. ABDOMEN: Soft. There is a large abdominal scar from prior surgery. Bowel sounds were normal. There was a marked fullness in the suprapubic region. I was quite certain this represented a full bladder and indeed a bladder scan done soon after my exam revealed almost 1 liter of urine. EXTREMITIES: Showed mild edema of both lower extremities. Apparently, this has improved a lot since he came in. The patient's extremities all seem fairly weak. LABORATORY DATA: White count today is 7.59. There has been no significant change since admission. Hemoglobin 15.3. Platelets 135,000. Differential count showed neutrophils, 72.1%, lymphs 15.2%, monocytes 10.8%, eos 1.3%. INR was 1.3 on admission with PTT 1. Blood gas done today showed a pH of 7.35 with pCO2 of 79 and pO2 of 66. This was done on 4 liters oxygen. This reflects a partially compensated respiratory acidosis. Electrolytes show sodium 141, potassium 4.5, chloride 99, and bicarbonate 42. BUN 24 with a creatinine of 0.68. Blood sugar 96. Lactate 1.3. Calcium 8.4. AST slightly elevated at 39. ALT is 6, which is low. Alkaline phosphatase normal at 88. ProBNP on admission was 2450. Total protein 5.7 with albumin 2.3. Urinalysis shows trace protein and trace blood. CAT scan of the chest shows an irregular right lower lobe nodule measuring 1.4 cm. There is a small right pleural effusion. In the left lung, there was 1.2 cm left lower lobe nodule. Moderate emphysema was noted throughout. CAT scan of the abdomen and pelvis reportedly was difficult to interpret due to lack of contrast and paucity of abdominal fat. There was a large amount of stool within the colon and rectum. CAT scan of the head showed no acute intracranial findings. Possibly acute left maxillary sinusitis. Venous Doppler of the lower extremities showed no evidence of DVT. Echocardiogram done 12/29/2018 showed ejection fraction 55-60%. Left ventricle was normal. There was mild LVH. Right ventricle was mildly dilated with normal right ventricular systolic function. EKG done yesterday showed sinus rhythm with nonspecific ST and T-wave changes. There was a slight right axis deviation. IMPRESSION: 1. Respiratory failure -- acute on chronic with hypoxia and hypercarbia. 2. Chronic obstructive pulmonary disease exacerbation. 3. A 14 mm right lower lobe nodule and 12 mm left lower lobe nodule -- questionable benign versus malignant. 4. Small right pleural effusion. 5. A 40-pound weight loss. COMMENTS AND RECOMMENDATIONS: The patient clearly has severe emphysema and COPD. He has nodules which could reflect malignancy. It would seem like there might be other causes for weight loss; however. It could be he has an occult malignancy. He is in urinary retention at present. It is suggested that the tiotropium be discontinued. This can contribute to urinary retention. I believe he should be on neb treatments with DuoNebs q.i.d. He is on Advair, but would increase the dose to 500/50 one puff b.i.d. The radiologist has recommended a 1 month followup on the CAT scan and I agree with that. If the nodules resolve, but would imply that they were secondary to inflammation or infection. If they persist; however, the risk of malignancy would be significant. At that point in time, consideration could be given to doing a PET scan. The right-sided lesion is fairly peripheral and could potentially be accessed by needle aspirate. The risk of pneumothorax; however, would exist particularly with the patient's emphysema. I agree with the BiPAP. For now, would at least try the BiPAP overnight for a few nights and see if we can improve his ventilation. Thank you for asking me to assist in his care.
[2018-12-31] MEDS: ALBUT/IPRATROP 3MG/0.5MG NEB 3 ML VIAL NEB SCH ×4 (06:58→19:45)
[2018-12-31] MEDS ORDERED: FUROSEMIDE 20 MG TAB PO SCH (09:00)
[2018-12-31] MEDS: FLUTICASONE/SALMETEROL (ADVAIR) 500/50 INH 14 PUFF INH SCH ×2 (09:17→19:58)
[2018-12-31] MEDS: ISOSORBIDE MONO EXTENDED REL 60 MG TABCR PO SCH (09:17)
[2018-12-31] MEDS: ASPIRIN 81 MG ECTAB PO SCH (09:17)
[2018-12-31] MEDS: CARBIDOPA/LEVODOPA 25/100MG TAB PO SCH ×3 (09:17→20:04)
[2018-12-31] MEDS: PRAVASTATIN SOD 40 MG TAB PO SCH (09:17)
[2018-12-31] MEDS: AZITHROMYCIN 250 MG TAB PO SCH (09:18)
[2018-12-31] MEDS: ENOXAPARIN INJ 40 MG/0.4 ML SYR SQ SCH (09:19)
[2018-12-31] MEDS: NICOTINE 21 MG/24 HR TDSY TD SCH (09:20)
[2018-12-31] MEDS ORDERED: methylPREDNISolone 40 MG in SYRINGE 0 ML IV STA (10:44)
--- NOTE | 2018-12-31 10:48 | Progress Note ---
DATE: 12/31/2018 PULMONARY PROGRESS NOTE TIME: 10:30 a.m. SUBJECTIVE: The patient states that he slept well. He denies any significant shortness of breath. He did wear BiPAP last night and tolerated it well. He denies any cough or sputum. He thinks his appetite may be a little better. OBJECTIVE: GENERAL: The patient was more awake than he was yesterday when I saw him. He was in no distress at rest. He has an area of irritation on the bridge of his nose that likely was secondary to the BiPAP mask. BiPAP is currently off. VITAL SIGNS: Heart rate 88 per minute. Rhythm regular. Blood pressure 138/73. Temperature today 36.8. He had a temperature this morning, slightly elevated at 37.7. Respiratory rate 20. LUNGS: Breath sounds again are diffusely diminished. Oxygen saturation earlier on the BiPAP was 96%. ABDOMEN: Soft and nontender. Good bowel sounds present. EXTREMITIES: Show mild edema of both lower extremities. LABORATORY DATA: No labs were done on this date. IMPRESSION: 1. Respiratory failure - acute on chronic with hypoxia and hypercarbia. 2. Chronic obstructive pulmonary disease exacerbation. 3. A 14 mm right lung nodule and 12 mm left lung nodule - questionable benign versus malignant. 4. Small right pleural effusion. 5. Significant weight loss. COMMENTS AND RECOMMENDATIONS: The patient seems improved. He is now on DuoNebs q.i.d. He tolerated the BiPAP overnight. Would not use it during the day. Could give it a trial for 1 more night to see if this might improve his carbon dioxide. Consideration to having a physical therapy evaluation. His overall status remains poor, but he is not acute at present. We will give the patient a short course of steroids.
[2018-12-31] MEDS: SENNA 8.6 MG TAB PO SCH (12:53)
--- NOTE | 2018-12-31 16:25 | Hospitalist Progress Note ---
Date of Service December 31, 2018 Assessment & Plan (1) Hypoxia: Likely multifactorial: Underlying COPD with exacerbation in the setting of chronic hypercapnic respiratory failure With possible pneumonia, acute bronchitis Acute on chronic diastolic congestive heart failure CT Chest 12/27/18 IMPRESSION: 1. Irregular 1.4 cm right lower lobe nodule which is suspicious for malignancy. An infectious etiology could appear similar although is considered less likely. Pulmonary consultation and a follow-up chest CT in one month are recommended. 2. 1.2 cm subpleural left lower lobe nodular opacity which may reflect a neoplasm or minimal airspace disease. 3. Moderate emphysema. 4. Extensive coronary artery calcification. 5. Small right pleural effusion. Mild right middle lobe and right lower lobe airspace opacity which may reflect pneumonia or atelectasis. Pulmonary service consulted Currently on Advair, nebs, Solu-Medrol, ceftriaxone plus azithromycin Continue to monitor Wean off oxygen accordingly Also started on BiPAP at night Pulmonary nodules -Irregular 1.4 cm right lower lobe nodule,1.2 cm subpleural left lower lobe nodular opacity -will need follow up Chest CT as per guidelines, outpatient PET scan, and pulmonary clinic follow up (2) Acute CHF: Likely acute on chronic congestive heart failure, diastolic type Patient was given IV Lasix, now on p.o. Lasix Patient has diuresed well We will lower dose of Lasix to every other day Continue to monitor volume status hold ISMN, continue Atenolol in light of recent hypotension (3) Frequent falls: PT/OT evaluations have recommended detention facility level of care for further physical therapy when patient is ready for discharge from the hospital (4) Cellulitis of right upper extremity: Ceftriaxone daily was started on this admission on 12/27/18 Blood cultures are negative cellulitis appears resolved at this time but will continue ceftriaxone for respiratory coverage (5) Tobacco abuse: Encouraged to quit Nicoderm patch while admitted. (6) Severe protein-calorie malnutrition: Cachexia Hypoalbuminemia : Hypoalbuminemia may also be contributory to the leg swelling give BOOST TID with meals (7) Skin ulcer of right hip: wound care, optifoam. Daily dressing changes and as needed. (8) DVT prophylaxis: Lovenox Code Status; allows for chest compressions and defibrillations but no intubation and no mechanical ventilation son [phone] Subjective ff up for hypoxia seen resting in bed, sleeping but easily arousable, family at the bedside patient's son and his [id number] Patient reports that he continues to improve day by day, has less cough No chest pain, dizziness, palpitations No other symptoms Review of Systems Review of Systems: All systems reviewed & are unremarkable except as noted in HPI & below Physical Exam Physical Exam: General- oriented x 3, not in distress, speaks in sentences with no effort or accessory muscle use Sleepy Underweight Head- atraumatic Eyes- PERRL, EOMI, anicteric ENT- oropharynx clear Neck- supple, no JVD, no adenopathy, no thyromegaly; carotids +2/2, no bruits appreciated Lungs-distant with faint wheeze bilaterally, no crackles Heart- normal rate, regular rhythm; no murmur, no gallop, no rub appreciated Abdomen- normal bowel sounds, nondistended, soft, nontender, no masses or hepatosplenomegaly Extremities- no pretibial edema, no calf tenderness; peripheral pulses intact Neuro- alert, oriented x 2; CN 2-12 grossly intact; motor 5/5 bilaterally;sensation 100% on all extremities; no other gross focal neurologic deficits Skin- warm & dry Results & Data Vital Signs (Past 12 Hours) Vital Signs Temp Pulse Pulse Pulse Resp BP BP 12/31/18 15:13 37.0 C 78 20 111/52 L 12/31/18 11:45 37.0 C 76 18 120/63 12/31/18 11:11 79 18 12/31/18 07:56 36.8 C 88 20 138/73 12/31/18 07:28 85 12/31/18 07:00 81 21 12/31/18 06:58 21 12/31/18 05:01 37.7 C H 84 16 111/66 Pulse Ox 12/31/18 15:13 90 12/31/18 11:45 97 12/31/18 11:11 92 12/31/18 07:56 96 12/31/18 07:28 12/31/18 07:00 95 12/31/18 06:58 95 12/31/18 05:01 94 (1) Skin ulcer of right hip Non-pressure ulcer stage: unspecified non-pressure ulcer stage Qualified Code(s): L97.119 - 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
[2018-12-31] MEDS: cefTRIAXone SODIUM 1,000 MG in DEXTROSE 5% 50 ML IV SCH (17:20)
[2018-12-31] MEDS: methylPREDNISolone 40 MG in SYRINGE 0 ML IV SCH (20:03)
[2018-12-31] MEDS: TAMSULOSIN HCL 0.4 MG CAP PO SCH (20:04)
[2019-01-01] MEDS: ALBUT/IPRATROP 3MG/0.5MG NEB 3 ML VIAL NEB SCH ×4 (07:11→19:22)
[2019-01-01] MEDS: methylPREDNISolone 40 MG in SYRINGE 0 ML IV SCH (07:45)
[2019-01-01] MEDS: CARBIDOPA/LEVODOPA 25/100MG TAB PO SCH ×3 (07:45→20:57)
[2019-01-01] MEDS: SENNA 8.6 MG TAB PO SCH (07:46)
[2019-01-01] MEDS: NICOTINE 21 MG/24 HR TDSY TD SCH (07:46)
[2019-01-01] MEDS: PRAVASTATIN SOD 40 MG TAB PO SCH (07:46)
[2019-01-01] MEDS: ENOXAPARIN INJ 40 MG/0.4 ML SYR SQ SCH (07:47)
[2019-01-01] MEDS: FLUTICASONE/SALMETEROL (ADVAIR) 500/50 INH 14 PUFF INH SCH ×2 (07:47→20:57)
[2019-01-01] MEDS: ASPIRIN 81 MG ECTAB PO SCH (07:48)
[2019-01-01] MEDS: AZITHROMYCIN 250 MG TAB PO SCH (07:48)
[2019-01-01] MEDS: ATENOLOL 25 MG TABLET PO SCH (08:07)
--- NOTE | 2019-01-01 14:05 | Progress Note ---
DATE: 01/01/2019 PULMONARY PROGRESS NOTE TIME: 1:45 p.m. SUBJECTIVE: The patient is feeling a little better each day. He feels stronger. He states his appetite is improved. He indicates they are cutting up his food smaller and he is finding it easier to swallow. He states that they were able to get the BiPAP mask comfortable last night. I am not sure exactly what they did to do that. He still has an area of skin disruption on the bridge of his nose. OBJECTIVE: GENERAL: The patient appears comfortable. Weight is 63.8 kilograms. This has been stable since he came in. VITAL SIGNS: Heart rate 86 per minute. Rhythm regular. Blood pressure 126/67. LUNGS: Auscultation of the lung escoto again reveals severely diminished breath sounds. Respiratory rate 18. Saturation 95% on nasal cannula. ABDOMEN: Soft and nontender. EXTREMITIES: Show mild edema of both lower extremities. LABORATORY DATA: No lab studies were done today. IMPRESSION: 1. Respiratory failure - acute on chronic with hypoxia and hypercarbia. 2. Chronic obstructive pulmonary disease exacerbation. 3. 14 mm right lung nodule and 12 mm left lung nodule. 4. A 40-pound weight loss, undetermined origin. 5. Small right pleural effusion. COMMENTS AND RECOMMENDATIONS: The patient is clinically improved. We will change from methylprednisolone to prednisone. We will recheck a blood gas tomorrow, so we can have a sense if he will need this on the long-term or not. Would continue with the q.i.d. neb treatments. I believe he likely should stay with that when he goes to the [facility].
[2019-01-01] MEDS: cefTRIAXone SODIUM 1,000 MG in DEXTROSE 5% 50 ML IV SCH (16:19)
--- NOTE | 2019-01-01 17:33 | Hospitalist Progress Note ---
Date of Service January 01, 2019 Assessment & Plan (1) Hypoxia: Likely multifactorial: Underlying COPD with exacerbation in the setting of chronic hypercapnic respiratory failure With possible pneumonia, acute bronchitis Acute on chronic diastolic congestive heart failure CT Chest 12/27/18 IMPRESSION: 1. Irregular 1.4 cm right lower lobe nodule which is suspicious for malignancy. An infectious etiology could appear similar although is considered less likely. Pulmonary consultation and a follow-up chest CT in one month are recommended. 2. 1.2 cm subpleural left lower lobe nodular opacity which may reflect a neoplasm or minimal airspace disease. 3. Moderate emphysema. 4. Extensive coronary artery calcification. 5. Small right pleural effusion. Mild right middle lobe and right lower lobe airspace opacity which may reflect pneumonia or atelectasis. Pulmonary service consulted Currently on Advair, nebs, Prednisone, ceftriaxone plus azithromycin Continue to monitor Wean off oxygen accordingly Also started on BiPAP at night repeat ABG in AM Pulmonary nodules -Irregular 1.4 cm right lower lobe nodule,1.2 cm subpleural left lower lobe nodular opacity -will need follow up Chest CT as per guidelines, outpatient PET scan, and pulmonary clinic follow up (2) Acute CHF: Likely acute on chronic congestive heart failure, diastolic type Patient was given IV Lasix, now on p.o. Lasix Patient has diuresed well We will lower dose of Lasix to every other day Continue to monitor volume status hold ISMN, continue Atenolol in light of recent hypotension - BP stable overall monitor (3) Frequent falls: PT/OT evaluations have recommended [facility] level of care for further physical therapy when patient is ready for discharge from the hospital (4) Cellulitis of right upper extremity: Ceftriaxone daily was started on this admission on 12/27/18 Blood cultures are negative cellulitis appears resolved at this time but will continue ceftriaxone for respiratory coverage (5) Tobacco abuse: Encouraged to quit Nicoderm patch while admitted. (6) Severe protein-calorie malnutrition: Cachexia Hypoalbuminemia : Hypoalbuminemia may also be contributory to the leg swelling give BOOST TID with meals (7) Skin ulcer of right hip: wound care, optifoam. Daily dressing changes and as needed. (8) DVT prophylaxis: Lovenox Code Status; allows for chest compressions and defibrillations but no intubation and no mechanical ventilation [facility] [phone] Subjective ff up for hypoxia seen sitting up in bed, comfortable not in distress states he feels improved day by day breathing improving no cough appetite is good denies other symptoms Review of Systems Review of Systems: All systems reviewed & are unremarkable except as noted in HPI & below Physical Exam Physical Exam: General- oriented x 3, not in distress, speaks in sentences with no effort or accessory muscle use underweight Eyes- anicteric Neck- no JVD Lungs- clear BS BL, no rales/wheezes Heart- normal rate, regular rhythm; no murmurs Abdomen- normal bowel sounds, nondistended, soft, nontender Extremities- no pretibial edema, no calf tenderness Neuro- alert, oriented x 3; no gross focal neurologic deficits Skin- warm & dry Results & Data Vital Signs (Past 12 Hours) Vital Signs Temp Pulse Pulse Pulse Resp BP Pulse Ox 01/01/19 15:33 81 20 94 01/01/19 15:20 36.8 C 86 16 132/68 94 01/01/19 12:00 36.8 C 86 18 126/67 95 01/01/19 11:25 84 18 93 01/01/19 07:23 36.8 C 81 20 162/80 H 97 01/01/19 07:12 72 17 94 01/01/19 07:11 72 17 94 (1) Skin ulcer of right hip Non-pressure ulcer stage: unspecified non-pressure ulcer stage Qualified Code(s): L97.119 - 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
[2019-01-01] MEDS: TAMSULOSIN HCL 0.4 MG CAP PO SCH (20:57)
[2019-01-02] MEDS: ALBUT/IPRATROP 3MG/0.5MG NEB 3 ML VIAL NEB SCH ×4 (07:11→19:21)
[2019-01-02] MEDS: FLUTICASONE/SALMETEROL (ADVAIR) 500/50 INH 14 PUFF INH SCH ×2 (07:40→20:30)
[2019-01-02] MEDS: CARBIDOPA/LEVODOPA 25/100MG TAB PO SCH ×3 (07:41→20:32)
[2019-01-02] MEDS: SENNA 8.6 MG TAB PO SCH (07:41)
[2019-01-02] MEDS: AZITHROMYCIN 250 MG TAB PO SCH (07:41)
[2019-01-02] MEDS: ASPIRIN 81 MG ECTAB PO SCH (07:41)
[2019-01-02] MEDS: ATENOLOL 25 MG TABLET PO SCH (07:42)
[2019-01-02] MEDS: PRAVASTATIN SOD 40 MG TAB PO SCH (07:42)
[2019-01-02] MEDS: NICOTINE 21 MG/24 HR TDSY TD SCH (07:43)
[2019-01-02] MEDS: ENOXAPARIN INJ 40 MG/0.4 ML SYR SQ SCH (07:43)
[2019-01-02] MEDS: predniSONE 20 MG TAB PO SCH (08:18)
[2019-01-02 11:03] LABS: Eosinophils # (auto) 0.05 K/uL (0-0.5); Eosinophils % (auto) 0.5 %; Hematocrit (blood only) 48.3 % (42-52); Hemoglobin 14.3 g/dL (14.0-18.0); Immature Granulocytes # (auto) 0.06 K/uL (0.00-0.02); Immature Granulocytes % (auto) 0.6 %; Lymphocytes # (auto) 1.18 K/uL (1.2-3.4); Lymphocytes % (auto) 11.6 %; Mean Corpuscular Hgb Conc 29.6 g/dL (32-36); Mean Corpuscular Volume 94.3 fL (80-100); Mean Platelet Volume 9.6 fL (7.4-10.4); Monocytes % (auto) 8.8 %; Neutrophils % (auto) 78.5 %; Platelet Count 186 K/uL (130-400); RDW Coefficient of Variation 16.2 % (11.5-14.5); RDW Standard Deviation 56.8 fL (36.4-46.3); Red Blood Count 5.12 M/uL (4.7-6.1); White Blood Count 10.19 K/uL (4.8-10.8)
[2019-01-02 11:12] LABS: Allen Test Pos (Pos); Oxygen Saturation ABG 84.1 % (90-95)
[2019-01-02 11:13] LABS: HCO3 ABG 42 mmol/L (19-24); PCO2 ABG 68 mmHg (35-46); PO2 ABG 48 mm/Hg (80-95); pH ABG 7.41 (7.35-7.45)
[2019-01-02 11:37] LABS: BUN Creatinine Ratio 55.8 (10-20); Calcium 8.7 mg/dl (8.5-10.1); Creatinine Clr Calc Pharmacy 97.2 ml/min; Est GFR (Non-African American) 98.3; Potassium 4.2 mmol/L (3.5-5.1)
[2019-01-02] MEDS: cefTRIAXone SODIUM 1,000 MG in DEXTROSE 5% 50 ML IV SCH (16:19)
--- NOTE | 2019-01-02 16:44 | Hospitalist Progress Note ---
Date of Service January 02, 2019 Assessment & Plan (1) Hypoxia: Likely multifactorial: Underlying COPD with exacerbation in the setting of chronic hypercapnic respiratory failure With possible pneumonia, acute bronchitis Acute on chronic diastolic congestive heart failure CT Chest 12/27/18 IMPRESSION: 1. Irregular 1.4 cm right lower lobe nodule which is suspicious for malignancy. An infectious etiology could appear similar although is considered less likely. Pulmonary consultation and a follow-up chest CT in one month are recommended. 2. 1.2 cm subpleural left lower lobe nodular opacity which may reflect a neoplasm or minimal airspace disease. 3. Moderate emphysema. 4. Extensive coronary artery calcification. 5. Small right pleural effusion. Mild right middle lobe and right lower lobe airspace opacity which may reflect pneumonia or atelectasis. Pulmonary service consulted clinically improving repeat ABG improved still on 2 L NC Currently on Advair, nebs, Prednisone, ceftriaxone plus azithromycin Continue to monitor Wean off oxygen accordingly Also started on BiPAP at night- awaiting further recommendations by Award Clerk Pulmonary nodules -Irregular 1.4 cm right lower lobe nodule,1.2 cm subpleural left lower lobe nodular opacity -will need follow up Chest CT as per guidelines, outpatient PET scan, and pulmonary clinic follow up (2) Acute CHF: Likely acute on chronic congestive heart failure, diastolic type Patient was given IV Lasix, now on p.o. Lasix Patient has diuresed well patient's BP on the low side, d/c Lasix for now start gentle IV fluids hold ISMN, continue Atenolol in light of recent hypotension (3) Frequent falls: PT/OT evaluations have [facility] for further physical therapy when patient is ready for discharge from the hospital (4) Cellulitis of right upper extremity: Ceftriaxone daily was started on this admission on 12/27/18 Blood cultures are negative cellulitis appears resolved (5) Tobacco abuse: Encouraged to quit Nicoderm patch while admitted. (6) Severe protein-calorie malnutrition: Cachexia Hypoalbuminemia : Hypoalbuminemia may also be contributory to the leg swelling give BOOST TID with meals (7) Skin ulcer of right hip: wound care, optifoam. Daily dressing changes and as needed. (8) DVT prophylaxis: Lovenox Code Status; allows for chest compressions and defibrillations but no intubation and no mechanical ventilation [facility] [phone] Disposition management of hypoxia in progress anticipate d/c to SNF when medically stable Subjective ff up for hypoxia seen resting in bed, comfortable states he continues to feel improved breathing improving, no cough no chest pain, palpitations, dizziness no other symptoms Review of Systems Review of Systems: All systems reviewed & are unremarkable except as noted in HPI & below Physical Exam Physical Exam: General- oriented x 3, not in distress, speaks in sentences with no effort or accessory muscle use Eyes- anicteric Neck- no JVD Lungs- clear breath sounds, no wheezing, no crackles, no other symptoms Heart- normal rate, regular rhythm; no murmurs Abdomen- normal bowel sounds, nondistended, soft, nontender Extremities- no pretibial edema, no calf tenderness Neuro- alert, oriented x 3; no gross focal neurologic deficits Skin- warm & dry Results & Data Vital Signs (Past 12 Hours) Vital Signs Temp Pulse Pulse Pulse Resp BP Pulse Ox 01/02/19 16:23 36.8 C 90 18 90/58 L 90 01/02/19 16:00 88 01/02/19 15:36 81 18 91 01/02/19 11:14 101 H 16 90 01/02/19 11:00 36.8 C 83 20 84/56 L 97 01/02/19 07:23 78 01/02/19 07:11 71 16 90 01/02/19 07:00 37.0 C 77 19 89/59 L 90 Laboratory Results Laboratory Results - last 24 hr 01/02/19 01/02/19 01/02/19 09:32 09:32 09:51 WBC 10.19 RBC 5.12 Hgb 14.3 Hct 48.3 MCV 94.3 MCH 27.9 MCHC 29.6 L RDW Std Deviation 56.8 H RDW Coeff of Krystle 16.2 H Plt Count 186 MPV 9.6 Immature Gran % (Auto) 0.6 Neut % (Auto) 78.5 Lymph % (Auto) 11.6 [place] % (Auto) 8.8 Eos % (Auto) 0.5 Baso % (Auto) 0.0 Immature Gran # (Auto) 0.06 H Neut # (Auto) 8.00 H Lymph # (Auto) 1.18 L [place] # (Auto) 0.90 H Eos # (Auto) 0.05 Baso # (Auto) 0.00 ABG pH 7.41 ABG pCO2 68 H ABG pO2 48 L ABG HCO3 42 H ABG O2 Saturation 84.1 L ABG Base Excess 13.7 H Wesly Test Pos Barometric Pressure 730.5 Oxygen Given 2L Sodium 137 Potassium 4.2 Chloride 96 L Carbon Dioxide 39 H Anion Gap 2.0 L BUN 32 H Creatinine 0.58 L Est Cr Clr Drug Dosing 97.2 Est GFR ( Amer) 114.0 Est GFR (Non-Af Amer) 98.3 BUN/Creatinine Ratio 55.8 H Glucose 102 H Calcium 8.7 (1) Skin ulcer of right hip Non-pressure ulcer stage: unspecified non-pressure ulcer stage Qualified Code(s): L97.119 - 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
[2019-01-02] MEDS: TAMSULOSIN HCL 0.4 MG CAP PO SCH (20:32)
[2019-01-03] MEDS: ALBUT/IPRATROP 3MG/0.5MG NEB 3 ML VIAL NEB SCH ×4 (07:10→19:36)
[2019-01-03] MEDS: FLUTICASONE/SALMETEROL (ADVAIR) 500/50 INH 14 PUFF INH SCH ×2 (07:58→20:59)
[2019-01-03] MEDS: PRAVASTATIN SOD 40 MG TAB PO SCH (07:59)
[2019-01-03] MEDS: CARBIDOPA/LEVODOPA 25/100MG TAB PO SCH ×3 (07:59→20:59)
[2019-01-03] MEDS: SENNA 8.6 MG TAB PO SCH (07:59)
[2019-01-03] MEDS: ATENOLOL 25 MG TABLET PO SCH (07:59)
[2019-01-03] MEDS: predniSONE 20 MG TAB PO SCH (07:59)
[2019-01-03] MEDS: ENOXAPARIN INJ 40 MG/0.4 ML SYR SQ SCH (08:00)
[2019-01-03] MEDS: NICOTINE 21 MG/24 HR TDSY TD SCH (08:00)
[2019-01-03] MEDS: ASPIRIN 81 MG ECTAB PO SCH (08:00)
[2019-01-03] MEDS ORDERED: FUROSEMIDE 20 MG TAB PO SCH (09:00)
--- NOTE | 2019-01-03 11:05 | Progress Note ---
DATE: 01/03/2019 PULMONARY PROGRESS NOTE TIME: 9:20 a.m. SUBJECTIVE: The patient is lethargic today. He was sleeping heavily when I came into the room. His lower dentures were in the bed and had obviously fallen out. They are no doubt loose due to the weight loss. He denied any symptoms. He denied being excessively sleepy. He denies shortness of breath or cough. OBJECTIVE: GENERAL: The patient is lethargic but arousable. VITAL SIGNS: Temperature 36.5. HEART: Heart rate 74 per minute. Rhythm was quite irregular. Blood pressure this morning is 96/52. It was noted that yesterday, his pressure was low for most of the day. LUNGS: Respiratory rate 18. He was not labored. Breath sounds diffusely diminished. Saturation 94% on 3 liters. HEENT: Not mentioned above is that the patient's nose on the bridge area has some skin breakage secondary to the BiPAP. EXTREMITIES: Showed no cyanosis, clubbing or edema. The patient has had no labs today. IMPRESSIONS: 1. Respiratory failure -- acute on chronic with hypoxia and hypercarbia. 2. Chronic obstructive pulmonary disease exacerbation. 3. A 14 mm right lung nodule and a 12 mm left lung nodule. 4. Significant weight loss -- malignancy not excluded. 5. Small right pleural effusion. COMMENTS: The patient is more lethargic today. I do not know if this is because his status has worsened or if he just had a bad night. It could be his oxygen levels are too high. We should keep his oxygen saturations between 88% and 92% because of the chronic CO2 retention, which he is known to have. His prognosis appears poor. Apparently, he is awaiting a fdc. The patient's code status should likely be addressed with his family. For a few days, he seemed to be getting more awake and alert, but there has been a definite downturn today. I have nothing else specifically to recommend. We will sign off for now, but would be happy to see the patient again if requested.
--- NOTE | 2019-01-03 12:05 | Hospitalist Progress Note ---
Date of Service January 03, 2019 Assessment & Plan (1) Hypoxia: Likely multifactorial: Underlying COPD with exacerbation in the setting of chronic hypercapnic respiratory failure With possible pneumonia, acute bronchitis Acute on chronic diastolic congestive heart failure CT Chest 12/27/18 IMPRESSION: 1. Irregular 1.4 cm right lower lobe nodule which is suspicious for malignancy. An infectious etiology could appear similar although is considered less likely. Pulmonary consultation and a follow-up chest CT in one month are recommended. 2. 1.2 cm subpleural left lower lobe nodular opacity which may reflect a neoplasm or minimal airspace disease. 3. Moderate emphysema. 4. Extensive coronary artery calcification. 5. Small right pleural effusion. Mild right middle lobe and right lower lobe airspace opacity which may reflect pneumonia or atelectasis. Pulmonary service consulted clinically improving repeat ABG improved still on 2 L NC Currently on Advair, nebs, Prednisone, ceftriaxone plus azithromycin Continue to monitor Wean off oxygen accordingly Also started on BiPAP at night- awaiting further recommendations by Fur Machine Operator 01/03 check ABG, ff up CXR may need Bipap this afternoon continue Advair, Albuterol, Prednisone, Ceftriaxone Pulmonary nodules -Irregular 1.4 cm right lower lobe nodule,1.2 cm subpleural left lower lobe nodular opacity -will need follow up Chest CT as per guidelines, outpatient PET scan, and pulmonary clinic follow up (2) Acute CHF: Likely acute on chronic congestive heart failure, diastolic type Patient was given IV Lasix, now on p.o. Lasix Patient has diuresed well patient's BP on the low side, d/c Lasix for now hold ISMN, continue Atenolol in light of recent hypotension gentle IV fluids 500cc at 60cc/hr IV NSS (3) Frequent falls: PT/OT evaluations have recommended [facility] level of care for further physical therapy when patient is ready for discharge from the hospital (4) Cellulitis of right upper extremity: Ceftriaxone daily was started on this admission on 12/27/18 Blood cultures are negative cellulitis appears resolved (5) Tobacco abuse: Encouraged to quit Nicoderm patch while admitted. (6) Severe protein-calorie malnutrition: Cachexia Hypoalbuminemia : Hypoalbuminemia may also be contributory to the leg swelling give BOOST TID with meals (7) Skin ulcer of right hip: wound care, optifoam. Daily dressing changes and as needed. (8) DVT prophylaxis: Lovenox Code Status; allows for chest compressions and defibrillations but no intubation and no mechanical ventilation son [phone] Disposition management of hypoxia in progress anticipate d/c to SNF when medically stable Subjective ff up for hypoxia seen resting in bed today sleepy but easily rousable states he feels fine, no changes with breathing appears more tired today per staff did not tolerate bipap last night removed o2 this AM o2 >90% after being placed back on NC denies dyspnea, dizziness, palpitations, nausea/vomiting Review of Systems Review of Systems: All systems reviewed & are unremarkable except as noted in HPI & below Physical Exam Physical Exam: General- oriented x 2, not in distress, speaks in sentences w ith no effort or accessory muscle use Eyes- anicteric Neck- no JVD Lungs- clear BS BL no rales/wheezes Heart- normal rate, regular rhythm; no murmurs Abdomen- normal bowel sounds, nondistended, soft, nontender Extremities- no pretibial edema, no calf tenderness Neuro- alert, oriented x 2; no gross focal neurologic deficits Skin- warm & dry Results & Data Vital Signs (Past 12 Hours) Vital Signs Temp Pulse Pulse Resp BP BP Pulse Ox 01/03/19 08:00 74 01/03/19 07:11 77 19 94 01/03/19 07:08 36.5 C 62 18 96/52 L 100 01/03/19 04:26 36.6 C 82 20 126/73 92 01/03/19 00:40 36.6 C 71 18 152/71 H 94 (1) Skin ulcer of right hip Non-pressure ulcer stage: unspecified non-pressure ulcer stage Qualified Code(s): L97.119 - 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
--- NOTE | 2019-01-03 12:27 | XRay Report ---
XR chest 1V portable CLINICAL HISTORY: FF UP, HYPOXIA COMPARISON STUDY: 12/27/2018 FINDINGS: Mildly progressive bibasilar parenchymal infiltrates. This is not combined with small bilat eral pleural effusions. Mid and upper lungs are clear. IMPRESSION: Mildly progressive bibasilar parenchymal infiltrates. Small bilateral pleural effusions. The above report was generated using voice recognition software. It may contain grammatical, syntax or spelling errors. Electronically signed by: Dillon López M.D. 01/03/2019 12:25 PM
[2019-01-03] MEDS: SODIUM CHLORIDE 0.9% 1000ML 1,000 ML IV SCH (12:30)
[2019-01-03 13:01] LABS: HCO3 ABG 40 mmol/L (19-24); Oxygen Saturation ABG 82.6 % (90-95); PCO2 ABG 65 mmHg (35-46); PO2 ABG 48 mm/Hg (80-95); pH ABG 7.41 (7.35-7.45)
[2019-01-03 13:09] LABS: Allen Test Pos (Pos)
[2019-01-03] MEDS: cefTRIAXone SODIUM 1,000 MG in DEXTROSE 5% 50 ML IV SCH (16:02)
[2019-01-03] MEDS: TAMSULOSIN HCL 0.4 MG CAP PO SCH (20:59)
[2019-01-04] MEDS: ALBUT/IPRATROP 3MG/0.5MG NEB 3 ML VIAL NEB SCH ×4 (07:24→19:36)
[2019-01-04] MEDS: SENNA 8.6 MG TAB PO SCH (08:38)
[2019-01-04] MEDS: CARBIDOPA/LEVODOPA 25/100MG TAB PO SCH ×3 (08:38→21:43)
[2019-01-04] MEDS: predniSONE 20 MG TAB PO SCH (08:38)
[2019-01-04] MEDS: ASPIRIN 81 MG ECTAB PO SCH (08:38)
[2019-01-04] MEDS: PRAVASTATIN SOD 40 MG TAB PO SCH (08:39)
[2019-01-04] MEDS: NICOTINE 21 MG/24 HR TDSY TD SCH (08:39)
[2019-01-04] MEDS: ENOXAPARIN INJ 40 MG/0.4 ML SYR SQ SCH (08:39)
[2019-01-04] MEDS: ATENOLOL 25 MG TABLET PO SCH (08:39)
[2019-01-04] MEDS: FLUTICASONE/SALMETEROL (ADVAIR) 500/50 INH 14 PUFF INH SCH ×2 (08:39→21:42)
[2019-01-04] MEDS: SODIUM CHLORIDE 0.9% 1000ML 1,000 ML IV SCH (13:04)
[2019-01-04] MEDS: cefTRIAXone SODIUM 1,000 MG in DEXTROSE 5% 50 ML IV SCH (16:17)
[2019-01-04] MEDS: TAMSULOSIN HCL 0.4 MG CAP PO SCH (21:44)
[2019-01-05] MEDS: SODIUM CHLORIDE 0.9% 1000ML 1,000 ML IV SCH ×2 (06:03→19:27)
[2019-01-05] MEDS: ALBUT/IPRATROP 3MG/0.5MG NEB 3 ML VIAL NEB SCH ×4 (06:58→19:35)
[2019-01-05] MEDS: FLUTICASONE/SALMETEROL (ADVAIR) 500/50 INH 14 PUFF INH SCH ×2 (08:15→20:01)
[2019-01-05] MEDS: SENNA 8.6 MG TAB PO SCH (08:15)
[2019-01-05] MEDS: ENOXAPARIN INJ 40 MG/0.4 ML SYR SQ SCH (08:16)
[2019-01-05] MEDS: NICOTINE 21 MG/24 HR TDSY TD SCH (08:16)
[2019-01-05] MEDS: CARBIDOPA/LEVODOPA 25/100MG TAB PO SCH ×3 (08:16→20:02)
[2019-01-05] MEDS: ASPIRIN 81 MG ECTAB PO SCH (08:16)
[2019-01-05] MEDS: PRAVASTATIN SOD 40 MG TAB PO SCH (08:17)
[2019-01-05] MEDS: predniSONE 20 MG TAB PO SCH (08:17)
[2019-01-05] MEDS: ATENOLOL 25 MG TABLET PO SCH (08:46)
[2019-01-05] MEDS: cefTRIAXone SODIUM 1,000 MG in DEXTROSE 5% 50 ML IV SCH (16:11)
--- NOTE | 2019-01-05 17:11 | Hospitalist Progress Note ---
Date of Service January 05, 2019 Assessment & Plan (1) Hypoxia: Likely multifactorial: Underlying COPD with exacerbation in the setting of chronic hypercapnic respiratory failure With possible pneumonia, acute bronchitis Acute on chronic diastolic congestive heart failure CT Chest 12/27/18 IMPRESSION: 1. Irregular 1.4 cm right lower lobe nodule which is suspicious for malignancy. An infectious etiology could appear similar although is considered less likely. Pulmonary consultation and a follow-up chest CT in one month are recommended. 2. 1.2 cm subpleural left lower lobe nodular opacity which may reflect a neoplasm or minimal airspace disease. 3. Moderate emphysema. 4. Extensive coronary artery calcification. 5. Small right pleural effusion. Mild right middle lobe and right lower lobe airspace opacity which may reflect pneumonia or atelectasis. Pulmonary service consulted clinically improving repeat ABG improved still on 2 L NC Currently on Advair, nebs, Prednisone, ceftriaxone plus azithromycin Continue to monitor Wean off oxygen accordingly Also started on BiPAP at night- awaiting further recommendations by [employer] Exhibit [employer]er 01/05 Patient remained stable overall Still on 2 L nasal cannula, used BiPAP overnight as per patient Continue present management Pulmonary nodules -Irregular 1.4 cm right lower lobe nodule,1.2 cm subpleural left lower lobe nodular opacity -will need follow up Chest CT as per guidelines, outpatient PET scan, and pulmonary clinic follow up (2) Acute CHF: Likely acute on chronic congestive heart failure, diastolic type Patient was given IV Lasix, now on p.o. Lasix Patient has diuresed well patient's BP on the low side, d/c Lasix for now hold ISMN, continue Atenolol in light of recent hypotension Blood pressure stable today Hold off on further IV fluids to avoid volume overload Patient is encouraged to drink more fluids and he verbalized understanding and agreement (3) Frequent falls: PT/OT evaluations have recommended [facility] facility level of care for further physical therapy when patient is ready for discharge from the hospital (4) Cellulitis of right upper extremity: Ceftriaxone daily was started on this admission on 12/27/18 Blood cultures are negative cellulitis appears resolved (5) Tobacco abuse: Encouraged to quit Nicoderm patch while admitted. (6) Severe protein-calorie malnutrition: Cachexia Hypoalbuminemia : Hypoalbuminemia may also be contributory to the leg swelling give BOOST TID with meals (7) Skin ulcer of right hip: wound care, optifoam. Daily dressing changes and as needed. (8) DVT prophylaxis: Lovenox Code Status; allows for chest compressions and defibrillations but no intubation and no mechanical ventilation son [phone] Disposition management of hypoxia in progress anticipate d/c to SNF tomorrow Subjective Follow-up for hypoxia Seen sitting up in bed comfortable, drinking his boost States he feels fine overall Answers all questions appropriately States breathing is fine, no coughing Denies other new complaints Review of Systems Review of Systems: All systems reviewed & are unremarkable except as noted in HPI & below Physical Exam Physical Exam: General-alert, oriented x3, not in distress, speaks in sentences with no effort or accessory muscle use Eyes- anicteric Neck- no JVD Lungs- clear BS, no crackles or rales bilaterally Heart- normal rate, regular rhythm; no murmurs Abdomen- normal bowel sounds, nondistended, soft, nontender Extremities- no pretibial edema, no calf tenderness Neuro- alert, oriented x3; no new gross focal neurologic deficits Skin- warm & dry Results & Data Vital Signs (Past 12 Hours) Vital Signs Temp Pulse Pulse Pulse Pulse Resp BP 01/05/19 15:52 75 01/05/19 15:19 36.9 C 86 20 01/05/19 15:16 79 18 01/05/19 11:22 36.3 C L 78 20 01/05/19 10:43 60 16 01/05/19 08:53 59 L 01/05/19 07:16 36.6 C 58 L 20 110/69 01/05/19 06:58 60 18 BP Pulse Ox 01/05/19 15:52 01/05/19 15:19 128/67 98 01/05/19 15:16 86 L 01/05/19 11:22 89/52 L 97 01/05/19 10:43 92 01/05/19 08:53 01/05/19 07:16 98 01/05/19 06:58 93 (1) Skin ulcer of right hip Non-pressure ulcer stage: unspecified non-pressure ulcer stage Qualified Code(s): L97.119 - 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
--- NOTE | 2019-01-05 18:22 | Hospitalist Progress Note ---
Date of Service Delayed Entry Date of service 01/04/2019 January 05, 2019 Assessment & Plan (1) Hypoxia: Likely multifactorial: Underlying COPD with exacerbation in the setting of chronic hypercapnic respiratory failure With possible pneumonia, acute bronchitis Acute on chronic diastolic congestive heart failure CT Chest 12/27/18 IMPRESSION: 1. Irregular 1.4 cm right lower lobe nodule which is suspicious for malignancy. An infectious etiology could appear similar although is considered less likely. Pulmonary consultation and a follow-up chest CT in one month are recommended. 2. 1.2 cm subpleural left lower lobe nodular opacity which may reflect a neoplasm or minimal airspace disease. 3. Moderate emphysema. 4. Extensive coronary artery calcification. 5. Small right pleural effusion. Mild right middle lobe and right lower lobe airspace opacity which may reflect pneumonia or atelectasis. Pulmonary service consulted clinically improving repeat ABG improved still on 2 L NC Currently on Advair, nebs, Prednisone, ceftriaxone plus azithromycin Continue to monitor Wean off oxygen accordingly Also started on BiPAP at night- awaiting further recommendations by Superintendent Nonselling 01/04/2019 Stable overall Continue present management Encouraged to use BiPAP at night Pulmonary nodules -Irregular 1.4 cm right lower lobe nodule,1.2 cm subpleural left lower lobe nodular opacity -will need follow up Chest CT as per guidelines, outpatient PET scan, and pulmonary clinic follow up (2) Acute CHF: Likely acute on chronic congestive heart failure, diastolic type Patient was given IV Lasix, now on p.o. Lasix Patient has diuresed well patient's BP on the low side, d/c Lasix for now hold ISMN, continue Atenolol in light of recent hypotension Blood pressure intermittently borderline, Continue to monitor closely (3) Frequent falls: PT/OT evaluations have recommended [facility] facility level of care for further physical therapy when patient is ready for discharge from the [facility] (4) Cellulitis of right upper extremity: Ceftriaxone daily was started on this admission on 12/27/18 Blood cultures are negative cellulitis appears resolved (5) Tobacco abuse: Encouraged to quit Nicoderm patch while admitted. (6) Severe protein-calorie malnutrition: Cachexia Hypoalbuminemia : Hypoalbuminemia may also be contributory to the leg swelling give BOOST TID with meals (7) Skin ulcer of right hip: wound care, optifoam. Daily dressing changes and as needed. (8) DVT prophylaxis: Lovenox Code Status; allows for chest compressions and defibrillations but no intubation and no mechanical ventilation son [phone] Disposition management of hypoxia in progress anticipate d/c to SNF when accepted Subjective Follow-up for hypoxia Seen resting in bed, comfortable, answers all questions appropriately States he feels fine overall Denies shortness of breath, cough Per RN the patient was observed to be confused earlier in the day, but seems to have resolved No other symptoms Review of Systems Review of Systems: All systems reviewed & are unremarkable except as noted in HPI & below Physical Exam Physical Exam: General- oriented x 3, not in distress, speaks in sentences with no effort or accessory muscle use Eyes- anicteric Neck- no JVD Lungs- clear BS BL, no wheezing, no crackles or rales Heart- normal rate, regular rhythm; no murmurs Abdomen- normal bowel sounds, nondistended, soft, nontender Extremities- no pretibial edema, no calf tenderness Neuro- alert, oriented x 3; no gross focal neurologic deficits Skin- warm & dry Results & Data Vital Signs (Past 12 Hours) Vital Signs Temp Pulse Pulse Pulse Pulse Resp BP 01/05/19 15:52 75 01/05/19 15:19 36.9 C 86 20 01/05/19 15:16 79 18 01/05/19 11:22 36.3 C L 78 20 01/05/19 10:43 60 16 01/05/19 08:53 59 L 01/05/19 07:16 36.6 C 58 L 20 110/69 01/05/19 06:58 60 18 BP Pulse Ox 01/05/19 15:52 01/05/19 15:19 128/67 98 01/05/19 15:16 86 L 01/05/19 11:22 89/52 L 97 01/05/19 10:43 92 01/05/19 08:53 01/05/19 07:16 98 01/05/19 06:58 93 Laboratory Results And reviewed (1) Skin ulcer of right hip Non-pressure ulcer stage: unspecified non-pressure ulcer stage Qualified Code(s): L97.119 - 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
[2019-01-05] MEDS: TAMSULOSIN HCL 0.4 MG CAP PO SCH (20:02)
[2019-01-06] MEDS: ALBUT/IPRATROP 3MG/0.5MG NEB 3 ML VIAL NEB SCH ×3 (07:15→15:09)
[2019-01-06] MEDS: SODIUM CHLORIDE 0.9% 1000ML 1,000 ML IV SCH (08:01)
[2019-01-06] MEDS: FLUTICASONE/SALMETEROL (ADVAIR) 500/50 INH 14 PUFF INH SCH (08:02)
[2019-01-06] MEDS: SENNA 8.6 MG TAB PO SCH (08:03)
[2019-01-06] MEDS: ATENOLOL 25 MG TABLET PO SCH (08:04)
[2019-01-06] MEDS: CARBIDOPA/LEVODOPA 25/100MG TAB PO SCH ×2 (08:04→13:54)
[2019-01-06] MEDS: PRAVASTATIN SOD 40 MG TAB PO SCH (08:05)
[2019-01-06] MEDS: ENOXAPARIN INJ 40 MG/0.4 ML SYR SQ SCH (08:05)
[2019-01-06] MEDS: ASPIRIN 81 MG ECTAB PO SCH (08:06)
[2019-01-06] MEDS: NICOTINE 21 MG/24 HR TDSY TD SCH (08:06)
[2019-01-06] MEDS ORDERED: predniSONE 10 MG TABLET PO SCH (09:00)
--- NOTE | 2019-01-06 15:49 | Hospitalist Progress Note ---
Date of Service January 06, 2019 Assessment & Plan (1) Hypoxia: Likely multifactorial: Underlying COPD with exacerbation in the setting of chronic hypercapnic respiratory failure With possible pneumonia, acute bronchitis Acute on chronic diastolic congestive heart failure CT Chest 12/27/18 IMPRESSION: 1. Irregular 1.4 cm right lower lobe nodule which is suspicious for malignancy. An infectious etiology could appear similar although is considered less likely. Pulmonary consultation and a follow-up chest CT in one month are recommended. 2. 1.2 cm subpleural left lower lobe nodular opacity which may reflect a neoplasm or minimal airspace disease. 3. Moderate emphysema. 4. Extensive coronary artery calcification. 5. Small right pleural effusion. Mild right middle lobe and right lower lobe airspace opacity which may reflect pneumonia or atelectasis. Pulmonary service consulted- Dr. Watson given Advair, Nebs, Solumedrol then Prednisone, PRN Lasix Treated 7 days of ceftriaxone and azithromycin clinically improved Hypercapnia, repeat ABG improved still on 2 L NC Continue on Advair, nebs, Prednisone taper Continue to monitor May need PRN Lasix Wean off oxygen accordingly Also started on BiPAP at night, continue while at personal-long-term Follow-up with [facility] group pulmonary clinic care of Dr. Memo watson in 2 weeks, telephone number [phone] 01/04/2019 Stable overall Continue present management Encouraged to use BiPAP at night Pulmonary nodules -Irregular 1.4 cm right lower lobe nodule,1.2 cm subpleural left lower lobe nodular opacity -will need follow up Chest CT as per guidelines, outpatient PET scan, and pulmonary clinic follow up (2) Acute CHF: Likely acute on chronic congestive heart failure, diastolic type Patient was given IV Lasix Patient has diuresed well patient's BP on the low side also appears to be on the dry side, d/c Lasix for now hold ISMN, continue Atenolol in light of recent hypotension Blood pressure intermittently borderline Continue to monitor status and blood pressure closely, titrate blood pressure medications and give PRN Lasix (3) Frequent falls: PT/OT evaluations have recommended longterm facility level of care for further physical therapy (4) Cellulitis of right upper extremity: Ceftriaxone daily was started on this admission on 12/27/18 Blood cultures are negative cellulitis appears resolved (5) Tobacco abuse: Encouraged to quit Nicoderm patch ordered (6) Severe protein-calorie malnutrition: Cachexia Hypoalbuminemia : Hypoalbuminemia may also be contributory to the leg swelling give BOOST TID with meals (7) Skin ulcer of right hip: wound care, optifoam. Daily dressing changes and as needed. (8) DVT prophylaxis: Lovenox Code Status; allows for chest compressions and defibrillations but no intubation and no mechanical ventilation Disposition Discharge to longterm facility today [facility] on Saturday Dr. Foster jan 12 2019 at 2:30 PM Follow-up with [facility] group pulmonary clinic Dr. Watson in 2 weeks Subjective Follow-up for hypoxia Seen sitting up in bed, watching TV, not in distress, in good spirits, smiling States he feels fine overall Shortness of breath, coughing Denies chest pain Appetite is good No other new complaints States he is ready would like to be discharged today Review of Systems Review of Systems: All systems reviewed & are unremarkable except as noted in HPI & below Physical Exam Physical Exam: General- oriented x 2, not in distress, speaks in sentences with no effort or accessory muscle use Eyes- anicteric Neck- no JVD Lungs- clear BS bilaterally, no rales/wheezes Heart- normal rate, regular rhythm; no murmurs Abdomen- normal bowel sounds, nondistended, soft, nontender Extremities- no pretibial edema, no calf tenderness Neuro- alert, oriented x 2; no gross focal neurologic deficits Skin- warm & dry Results & Data Vital Signs (Past 12 Hours) Vital Signs Temp Pulse Pulse Pulse Pulse Pulse Resp 01/06/19 15:38 36.5 C 60 82 86 85 18 01/06/19 15:11 85 18 01/06/19 14:52 36.5 C 86 18 01/06/19 13:18 36.6 C 74 18 01/06/19 11:14 60 18 01/06/19 09:32 67 01/06/19 07:18 62 18 01/06/19 06:56 36.6 C 18 01/06/19 04:00 36.5 C 64 18 BP BP Pulse Ox 01/06/19 15:38 112/60 112/64 91 01/06/19 15:11 91 01/06/19 14:52 112/64 90 01/06/19 13:18 112/60 95 01/06/19 11:14 94 01/06/19 09:32 01/06/19 07:18 90 01/06/19 06:56 165/84 H 94 01/06/19 04:00 162/74 H 90 (1) Skin ulcer of right hip Non-pressure ulcer stage: unspecified non-pressure ulcer stage Qualified Code(s): L97.119 - 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
--- NOTE | 2019-01-06 15:56 | Discharge Summary ---
Date of Service January 06, 2019 Admission HPI Per Admitting Provider 78 yo M smoker with CAD and PAD presents with lower leg swelling, dyspnea at rest with acute hypoxia and malaise/fatigue. Pt is not able to give a history that is clear. Per son, who is at the bedside and lives with the patient, states that the patient was progressively weak beginning yesterday and fell out of bed 8 times overnight. Began noticing leg swelling for the past 4 days and progressive shortness of breath. Patient is not on home oxygen and walks independently without a walker at baseline. He recently had a fall at home where he caught the corner of the bedpost on his right knuckle and this has become swollen and red with the erythema extending distal almost to his elbow. The patient denies any fevers but is currently reporting chills. The patient is a daily smoker and reports heavy alcohol use in the past but quit in 2012. He otherwise indulges and junk food regularly and his food has a high salt content reportedly. Review of systems reveals a 40 pound weight loss in the last 2 months despite good p.o. intake. The patient otherwise denies any chest pain, neck stiffness, headache, eye irritation, abdominal issues, issues. The patient's son does report some noticeable urinary retention this morning at home which is new for the patient. Mr. Jack is laying supine propped up on his right side in bed with his eyes closed during the entire examination. He is oriented but participates very little in the question and answer session of the examination. The patient is not on Lasix at home. He is had a good response (approximately 1 L ) to 40 mg IV given in the ER today and Simon catheter is in place. Rocephin was started for cellulitis of the hand in the ER. Admission Exam Per Admitting Provider CONSTITUTIONAL: cachectic, vitals as above, generally ill apearing and fatigued, no respiratory distress on 4L NC. Nicotine stains on all fingers. EYES: PERRL, irritation of eyelids, no discharge, normal conjuctivae, injected sclerae ENT: MM dry NECK: trachea midline RESPIRATORY: very poor effort, some coarse rhonchi on the right, moves air well on left, no wheezing. No resp distress. CARDIOVASCULAR: regular rate and rhythm, S1 and 2 heard without murmurs, gallops or rubs, no JVD, 3+ pitting edema bilaterally CHEST: inspection of chest was cata GASTROINTESTINAL: normal bowel sounds, soft, nontender,nondistended MUSCULOSKELETAL: strength 5/5 throughout, head is normocephalic and atraumatic, neck supple, normal palpation of chest wall without tenderness SKIN: warm and dry, Stage II ulceration on R hand with surrounding erythema extending proximally up the forearm over half way to elbow. Stage II ulceration of R buttock. Draining wound on LLE without surrounding erythema or purulent drainage. 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 Appears to move all extremities equally and has generalized weakness. No gross focal deficits. PSYCHIATRIC: alert cooperative and oriented to person, place and time. Principal Diagnosis Hypoxia secondary to COPD exacerbation, pneumonia, acute on chronic diastolic heart failure Discharge Exam General- oriented x 2, not in distress, speaks in sentences with no effort or accessory muscle use Eyes- anicteric Neck- no JVD Lungs- clear BS bilaterally, no rales/wheezes Heart- normal rate, regular rhythm; no murmurs Abdomen- normal bowel sounds, nondistended, soft, nontender Extremities- no pretibial edema, no calf tenderness Neuro- alert, oriented x 2; no gross focal neurologic deficits Skin- warm & dry Discharge Data Allergies Allergy/AdvReac Type Severity Reaction Status Date / Time No Known Allergies Allergy Unknown Verified 01/21/08 20:17 Consultations 12/27/18 15:37 ED Decision to Admit Stat 12/27/18 18:27 Consult Case Management - Discharge Planning Routine 12/30/18 11:01 Consult Pulmonology Routine Ordered Studies 12/27/18 12:09 US venous doppler LE BI Stat IMPRESSION: No evidence of deep venous thrombus within the bilateral lower extremities. 12/27/18 15:35 CT head/brain wo con Stat IMPRESSION: 1. No acute intracranial findings. 2. Left maxillary sinusitis, possibly acute. 3. Age indeterminate minimally displaced right nasal bone fracture. No calvarial fracture. 12/27/18 16:52 CT abd pelvis wo con Stat FINDINGS: Please note that the chest CT will be reported separately. Evaluation of the abdomen and pelvis is difficult given lack of contrast and posterior fat. Unenhanced images of liver, spleen, adrenal glands and pancreas are unremarkable. Water attenuation bilateral renal lesions are suboptimally assessed on this exam but favor cysts. Aortoiliac bypass graft is suboptimally assessed on this unenhanced exam. A large amount of stool within the colon and rectum is noted. There is no evidence for a bowel obstruction. No pneumatosis, free air or portal venous gas is present. No suspicious osseous lesions are noted. Simon balloon is present within the bladder. There is no hydronephrosis. No biliary or pancreatic ductal dilatation is identified. IMPRESSION: 1. Difficult study to interpret given lack of contrast and paucity of intra- abdominal fat. 2. Large amount of stool within the colon and rectum. No bowel obstruction. 3. No pneumatosis, free air or portal venous gas. CT chest wo con Stat FINDINGS: No enlarged axillary, mediastinal or hilar lymph nodes are present. The size of the heart is normal. There is extensive coronary artery calcification. There is mild dilatation of the central pulmonary arteries. There is a trace right pleural effusion. There is bilateral lower lobe airspace o pacity, greater on the right. There is no pneumothorax. Moderate emphysema is present. There is biapical scarring. Note is made of an irregular 1.4 cm right lower lobe nodule on image 216 at 386. There is also a 1.2 cm irregular left lower lobe nodule on image 271 with minimal adjacent airspace opacity. Lungs are suboptimally assessed given respiratory motion. No acute fracture within the thoracic spine or ribs is identified. IMPRESSION: 1. Irregular 1.4 cm right lower lobe nodule which is suspicious for malignancy. An infectious etiology could appear similar although is considered less likely. Pulmonary consultation and a follow-up chest CT in one month are recommended. 2. 1.2 cm subpleural left lower lobe nodular opacity which may reflect a neoplasm or minimal airspace disease. 3. Moderate emphysema. 4. Extensive coronary artery calcification. 5. Small right pleural effusion. Mild right middle lobe and right lower lobe airspace opacity which may reflect pneumonia or atelectasis. Hospital Course (1) Hypoxia: Likely multifactorial: Underlying COPD with exacerbation in the setting of chronic hypercapnic resp iratory failure With possible pneumonia, acute bronchitis Acute on chronic diastolic congestive heart failure CT Chest 12/27/18 IMPRESSION: 1. Irregular 1.4 cm right lower lobe nodule which is suspicious for malignancy. An infectious etiology could appear similar although is considered less likely. Pulmonary consultation and a follow-up chest CT in one month are recommended. 2. 1.2 cm subpleural left lower lobe nodular opacity which may reflect a neoplasm or minimal airspace disease. 3. Moderate emphysema. 4. Extensive coronary artery calcification. 5. Small right pleural effusion. Mild right middle lobe and right lower lobe airspace opacity which may reflect pneumonia or atelectasis. Pulmonary service consulted- Dr. Watson given Advair, Nebs, Solumedrol then Prednisone, PRN Lasix Treated 7 days of ceftriaxone and azithromycin clinically improved Hypercapnia, repeat ABG improved still on 2 L NC Continue on Advair, nebs, Prednisone taper Continue to monitor May need PRN Lasix Wean off oxygen accordingly Also started on BiPAP at night, continue while at personal-correction Follow-up with [facility] pulmonary clinic care of Dr. Memo watson in 2 weeks, telephone number [phone] 01/04/2019 Stable overall Continue present management Encouraged to use BiPAP at night Pulmonary nodules -Irregular 1.4 cm right lower lobe nodule,1.2 cm subpleural left lower lobe nodular opacity -will need follow up Chest CT as per guidelines, outpatient PET scan, and pulmonary clinic follow up (2) Acute CHF: Likely acute on chronic congestive heart failure, diastolic type Patient was given IV Lasix Patient has diuresed well patient's BP on the low side also appears to be on the dry side, d/c Lasix for now hold ISMN, continue Atenolol in light of recent hypotension Blood pressure intermittently borderline Continue to monitor status and blood pressure closely, titrate blood pressure medications and give PRN Lasix (3) Frequent falls: PT/OT evaluations have recommended alf facility level of care for further physical therapy (4) Cellulitis of right upper extremity: Ceftriaxone daily was started on this admission on 12/27/18 Blood cultures are negative cellulitis appears resolved (5) Tobacco abuse: Encouraged to quit Nicoderm patch ordered (6) Severe protein-calorie malnutrition: Cachexia Hypoalbuminemia : Hypoalbuminemia may also be contributory to the leg swelling give BOOST TID with meals (7) Skin ulcer of right hip: wound care, optifoam. Daily dressing changes and as needed. (8) DVT prophylaxis: Lovenox Code Status; allows for chest compressions and defibrillations but no intubation and no mechanical ventilation Disposition Discharge to alf facility today Follow-up with [facility] primary care physician on Saturday Dr. Foster jan 12 2019 at 2:30 PM Follow-up with [facility] group pulmonary clinic Dr. Watson in 2 weeks Total Time Total Time Spent Total Time Spent (In Minutes): 55 minutes Discharge Plan Discharge Items Patient Disposition: Transfer [facility] Care Fac Reason For Visit: DYSPNEA Discharge Diagnosis: HYPOXIA SECONDARY TO COPD EXACERBATION, PNEUMONIA Discharge Goals: Diagnostic testing and Therapeutic intervention Activity: As commented below Activity Comment: Always with assistance, fall precautions, continue PT OT Lifting: Wait until after follow-up appointment Exercise/Sports: Wait until after follow-up appointment Driving/Machine Use Comment: No driving Non-emergency contact: Primary Care Provider Call non-emergency contact if: you have any medication questions and you have a fever Follow-up/Referrals: Leonardo Soliz MD [Primary Care Provider] - 01/12/19 2:30 pm Diet: Heart Healthy Addtl Provider Instructions: Please monitor volume status. Use Lasix as needed Continue 2 L of oxygen via nasal cannula. Continue BiPAP at night. Monitor for delirium, fall precautions. Please refer to accompanying hospital discharge summary for further details. Prescriptions: New ipratropium-albuterol 0.5 mg-3 mg(2.5 mg base)/3 mL Solution For Nebulization 3 ml NEB QIDR 14 Days Qty: 168 RF: 1 nicotine [Nicoderm CQ] 21 mg/24 hr Patch 24 Hour 21 mg transdermal QAM 14 Days Qty: 14 RF: 1 sennosides [Senokot] 8.6 mg Tablet 8.6 mg PO QAM 14 Days Qty: 14 RF: 1 tamsulosin 0.4 mg Capsule 0.4 mg PO HS 14 Days Qty: 14 RF: 1 enoxaparin 40 mg/0.4 mL Syringe 40 mg subcut QAM 14 Days Qty: 5.6 RF: 1 prednisone 10 mg tablet 10 mg PO DAILY Qty: 10 RF: 0 fluticasone propion-salmeterol [Advair Diskus] 500-50 mcg/dose Blister With Device 1 puff inhalation BID 14 Days Qty: 1 RF: 1 Continued aspirin [Aspirin Low Dose] 81 mg Tablet,Delayed Release (Dr/Ec) 81 mg PO DAILY RF: 0 pravastatin 40 mg Tablet 40 mg PO DAILY 14 Days Qty: 0 RF: 1 carbidopa-levodopa 25-100 mg Tablet 1 tab PO TID 14 Days Qty: 42 RF: 1 atenolol 50 mg Tablet 25 mg PO DAILY 14 Days Qty: 7 RF: 1 Discontinued isosorbide mononitrate 60 mg Tablet Extended Release 24 Hr 60 mg PO BID RF: 0 Stand-Alone Forms: [facility] Discharge Orders: Discharge Order (Routine); Ordered 01/06/19 Ordered By: Jeremiah Leija Skilled Items Patient informed of condition?: Yes DNR: No Discharge Level of Care: Other Communicable Disease: No Discharge Prognosis: Stable Admission Data Admit Date/Time: 12/27/18 16:06 Attending Provider: Jeremiah Leija Admit Provider: Qian Stewart Primary Care Provider: Leonardo Soliz Other Providers: Kai Bone ; Qian Stewart ; Memo Watson Service: Telemetry Medical Other Interventions: Discharge Summary Assessment (RN) Last Done: 01/06/19 15:38
--- NOTE | 2019-01-06 18:36 | Hospitalist Progress Note ---
Date of Service January 06, 2019 Subjective Follow-up for hypoxia Sitting up in bed, watching TV, comfortable States he continues to feels fine overall Denies shortness of breath, cough, chest pain Appetite is good Results & Data Vital Signs (Past 12 Hours) Vital Signs Temp Pulse Pulse Pulse Pulse Pulse Resp 01/06/19 15:58 83 01/06/19 15:38 36.5 C 60 82 86 85 18 01/06/19 15:11 85 18 01/06/19 14:52 36.5 C 86 18 01/06/19 13:18 36.6 C 74 18 01/06/19 11:14 60 18 01/06/19 09:32 67 01/06/19 07:18 62 18 01/06/19 06:56 36.6 C 18 BP BP Pulse Ox 01/06/19 15:58 01/06/19 15:38 112/60 112/64 91 01/06/19 15:11 91 01/06/19 14:52 112/64 90 01/06/19 13:18 112/60 95 01/06/19 11:14 94 01/06/19 09:32 01/06/19 07:18 90 01/06/19 06:56 165/84 H 94
== END 2019-01-06 18:23 | DRG 193 ==
LOC: ED 11:53 → 2S 16:06 → SUATTDRO 16:06 → 2S 17:32 → 2W 01-01 21:37